=== PATIENT | male | born 1960 ===

== ENCOUNTER 2019-05-02 07:30 | Inpatient (IN) | payer BC ==
--- NOTE | 2019-04-19 13:30 | HP ---
HISTORY AND PHYSICAL: DATE OF SURGERY: 05/02/19 DATE OF OFFICE VISIT: 04/19/19 SURGEON: Cass Jung MD* (dictated by ORESTES Allen). PROCEDURE: Left total hip arthroplasty. CHIEF COMPLAINT: Left hip pain. HISTORY OF PRESENT ILLNESS: Mr. Grijalva is a 58-year-old gentleman with continued complaints of left hip pain. He has failed conservative treatment and elected to proceed with a left total hip arthroplasty. PAST MEDICAL HISTORY: 1. Diabetes. 2. Hypertension. 3. High cholesterol. PAST SURGICAL HISTORY: Hernia repair. CURRENT MEDICATIONS: 1. Januvia 50 mg daily. 2. Lisinopril/hydrochlorothiazide 20/25 mg daily. 3. Rosuvastatin calcium 5 mg today. 4. Trulicity injection subcutaneously once weekly. 5. Meloxicam as needed. 6. Tramadol as needed. ALLERGIES: No known drug allergies. FAMILY HISTORY: Stroke and coronary artery disease. SOCIAL HISTORY: He is a 58-year-old gentleman, lives with his . He does not smoke or use drugs. He uses occasional alcohol. REVIEW OF SYSTEMS: A complete 14-point review of systems was reviewed with the patient. It was positive for diabetes. He denies a history of DVT, PE, hepatitis, HIV or anesthesia problems. PHYSICAL EXAMINATION GENERAL: He is well developed, well nourished, in no acute distress. VITAL SIGNS: He stands 70.5 inches tall, weighs 255 pounds, blood pressure is 120/84, his heart rate is 64. HEENT: Normocephalic, atraumatic. NECK: Supple. No palpable lymph nodes. PULMONARY: Lungs are clear to auscultation bilaterally. CARDIO: Regular rate and rhythm. Strong S1 and S2. ABDOMEN: Soft, nontender, nondistended. NEUROLOGICAL: He is alert and oriented x3. MUSCULOSKELETAL: Left lower extremity: Skin is intact. There are no open wounds or abrasions. He walks with an antalgic type gait favoring his left hip. He has decreased internal and external rotation of the left hip. He has 80 degrees of flexion of the hip. He lacks 15 degrees from neutral and has 0 internal rotation, all reproducing pain. He is able to dorsiflex and plantarflex. He has 2+ dorsalis pedis pulse and intact sensation. ASSESSMENT AND PLAN: Mr. Grijalva is a 58-year-old gentleman with severe end- stage osteoarthritis of the left hip. He has failed conservative treatment and elected to proceed with a left total hip arthroplasty. This surgery is scheduled for 05/02/[address] Jung discussed the risks and benefits of the surgery at today's visit and all of his questions were answered. He will follow up with Dr. Jung 2 weeks after the surgery. ORESTES ALLEN [id number]/CPS #: [id number] MTDD
[~2019-05-02 07:30] MED LIST: Buffered Lidocaine 1% SYRIN* 1 ML/SYRINGE INTRADERM ONE; Lactated Ringers 1000 ML Bag* 1,000 ML IV SCH; Tranexamic Acid 1,000 MG in NS 0.9% 50 ML* (outpatient use) IV SCH
[2019-05-02] MEDS ORDERED: Bupivacaine 0.5% SDV PF* 30ML VIAL ONE (07:32)
[2019-05-02] MEDS ORDERED: Propofol* 10 MG/ML 20 ML BTL ONE ×2 (07:32→12:10)
[2019-05-02] MEDS ORDERED: Lidocaine 2% PF * 5 ML VIAL ONE ×2 (07:32→07:37)
[2019-05-02] MEDS ORDERED: ROPIVACAINE 5 MG/ML 30 ML BTL (0.5%) ONE (07:32)
[2019-05-02] MEDS ORDERED: Propofol* 500 MG/50 ML BTL ONE (07:32)
[2019-05-02] MEDS ORDERED: KETAMINE HCL* 50 MG/ML 10 ML VIAL ONE (07:33)
--- OUTSIDE RECORDS SUMMARY | 2019-05-02 07:33 | XMS REPORT | Continuity of Care Document ---
:1960 External Reference #:[id number] Author Name Mckenzie Copeland Care Team Providers Name Role Phone Isaac Huang MD Primary Care Physician Unavailable Payers Date Identification Numbers Payment Provider Subscriber Policy Number: [id number] [facility] Shaquille Grijalva PayID: [id number] [address] [address] [place] [address] Problems Active Problems Provider Date Localized, primary osteoarthritis of the pelvic Cass Jung M.D. 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 Tablets needed pain. max 6 per day Januvia Take One Tablet By Unknown 50mg Mouth Every Day Tablets Lisinopril-Hydrochl Take One Tablet By Unknown orothiazide Mouth Every Day 20-25mg Tablets Rosuvastatin Take One Tablet By Unknown Calcium Mouth Every Day 5mg Tablets Trulicity Inject Subcutaneously Unknown Once A Week as 1.5mg/0.5ML Directed Solution Pen-Inject Meloxicam as needed Unknown Vital Signs Date Vital Result Comment 04/13/2019 8:46am Height 70.5 inches 5'10.50" Weight 261.00 lb with shoes Heart Rate 70 /min BP Systolic Sitting 118 mmHg Rue lg cuff Lue 110/74 BP Diastolic Sitting 76 mmHg Rue lg cuff Lue 110/74 BP Systolic Standing 110 mmHg Rue lg cuff BP Diastolic Standing 76 mmHg Rue lg cuff Respiratory Rate 16 /min BMI (Body Mass Index) 36.9 kg/m2 03/03/2019 8:28am Height 70.5 inches 5'10.50" Weight 257.00 lb Heart Rate 64 /min BP Systolic 144 mmHg BP Diastolic 86 mmHg Pain Level 8 BMI (Body Mass Index) 36.4 kg/m2 Procedures Date Code Description Status 04/13/2019 49365 EKG Tracing & Interpretation Completed Encounters Type Date Location Provider Dx Diagnosis Office Visit 03/03/2019 [facility] Cass Jung, M25.552 Pain in left hip 8:00a [facility] M16.12 Unilateral primary osteoarthritis, left hip Plan of Treatment Future Appointment(s):04/18/2019 4:40 pm - Ramos Drake M.D. at [facility]04/14/2019 1:30 pm - Traveling ECHO 2 at [facility]04/17/2019 9:30 am - Toy Styles M.D. at [facility]05/02/2019 11:45 am - Cass Jung M.D. at [facility]05/17/2019 8:00 am - Cass Jung M.D. at [facility].04/19/2019 8:00 am - Cass Jung M.D. at [facility]04/13/2019 - Ramos Drake M.D.R94.31 Abnormal electrocardiogram [ECG] [EKG]New Orders:Echocardiogram, Ordered: Lexiscan Nuclear Myoview, Ordered: 04/13/19Follow up:ov before 05/02 for final clearance if possibe-you can use 820, 11 20, 4 20 or 4 40 nspvnH74 Essential ( primary) ojdefztmrajzE52.5 Hyperlipidemia, udhditpytnnB72.9 Obesity, rexiqrbiovpB63.810 Encounter for preprocedural cardiovascular woowxrtsugcR27.49 Family history of ischemic heart disease and other diseases
--- OUTSIDE RECORDS SUMMARY | 2019-05-02 07:33 | XMS REPORT | Continuity of Care Document ---
:1960 External Reference #:[id number] Author Name Marj Unger Care Team Providers Name Role Phone Isaac Huang MD Primary Care Physician Unavailable Payers Date Identification Numbers Payment Provider Subscriber Policy Number: [id number] [facility] Shaquille Grijalva PayID: [id number] [address] [address] [place] [address] Problems Active Problems Provider Date Localized, primary osteoarthritis of the pelvic Cass Jung M.D. 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 Tablets needed pain. max 6 per day Januvia Take One Tablet By Unknown 50mg Tablets Mouth Every Day Lisinopril-Hydrochlo Take One Tablet By Unknown rothiazide Mouth Every Day 20-25mg Tablets Rosuvastatin Calcium Take One Tablet By Unknown Mouth Every Day 5mg Tablets Trulicity Inject Subcutaneously Unknown 1.5mg/0.5ML Once A Week as Solution Pen-Inject Directed Meloxicam 7.5 mg as needed Unknown Advil as needed Unknown 200mg Tablets Acetaminophen ER 1 by mouth twice a Unknown day, as needed 650mg Tablets ER Aleve as needed Unknown 220mg Tablets Medications Administered in Office Medication SIG Qnty Indications Ordering Provider Date Inj, Regadenoson, 0.1 MG Toy Styles M.D. 04/17/2019 Injection Technetium TC 99M Toy Styles M.D. 04/17/2019 Tetrofosmin, Per Unit Dose Up To 40 Millicuries Injection Technetium TC 99M Toy Styles M.D. 04/17/2019 Tetrofosmin, Per Unit Dose Up To 40 Millicuries Injection Vital Signs Date Vital Result Comment 04/19/2019 1:04pm Height 70.5 inches 5'10.50" Weight 257.38 lb with shoes Heart Rate 96 /min BP Systolic Sitting 148 mmHg LA, reg BP Diastolic Sitting 80 mmHg LA, reg BP Systolic Standing 148 mmHg LA< reg BP Diastolic Standing 78 mmHg LA< reg BMI (Body Mass Index) 36.4 kg/m2 Ejection Fraction 60%-65% 04/14/19 echo 04/19/2019 8:06am Height 70.5 inches 5'10.50" Weight 255.00 lb Heart Rate 64 /min BP Systolic 120 mmHg BP Diastolic 82 mmHg Respiratory Rate 16 /min Body Temperature 97.7 F Pain Level 4 BMI (Body Mass Index) 36.1 kg/m2 04/13/2019 8:46am Height 70.5 inches 5'10.50" Weight [...] 8 BMI (Body Mass Index) 36.4 kg/m2 Results Test Date Facility Test Result H/L Range Note Inr/Protime 04/19/2019 [facility] Inr 0.98 N 0.82-1.09 1, [address] [place] [address] [phone] Laboratory test 04/19/2019 [facility] Partial 34.6 seconds N 26.0-36.[address] [place] [address] PTT [phone] Type & Screen 04/19/2019 [facility] Patient Blood O Positive [address] [place] [address] [phone] Antibody Screen NEGATIVE 1 PAIN IN LEFT HIP, UNILATERAL PRIMARY OSTEOARTHRITI 2 Standard intensity warfarin therapeutic range: 2.0-3.0 High intensity warfarin therapeutic range: 2.5-3.5 Procedures Date Code Description Status 04/17/2019 46142 Stress Test Completed 04/14/2019 58475 ECHO Transthoracic, Real-Time 2D With Doppler And Color Completed Flow 04/13/2019 45848 EKG Tracing & Interpretation Completed Encounters Type Date Location Provider Dx Diagnosis Office Visit 03/03/2019 Orthopedic Cass Jung, M25.552 Pain in left hip 8:00a [facility] M16.12 Unilateral primary osteoarthritis, left hip Plan of Treatment Future Appointment(s):05/15/2019 1:45 pm - Cass Jung M.D. at [facility]05/02/2019 9:45 am - Cass Jung M.D. at [facility]04/19/2019 - Ramos Drake M.D.I10 Essential (primary ) lbdxsidzpvzuO07.9 Obesity, akrtfurcosfC77.5 Hyperlipidemia, bmhmutnqhgnP54.810 Encounter for preprocedural cardiovascular yzvuskhdjczB41.49 Family history of ischemic heart disease and other faknioalR87.819 Aortic ectasia, unspecified siteNew Orders:Echocardiogram, Ordered: 04/19/19Follow up: one yr ov
--- OUTSIDE RECORDS SUMMARY | 2019-05-02 07:33 | XMS REPORT | Continuity of Care Document ---
:1960 External Reference #:[id number] Author Name Anushka Connolly Care Team Providers Name Role Phone Isaac Huang MD Primary Care Physician Unavailable Payers Date Identification Numbers Payment Provider Subscriber Policy Number: [id number] [facility] Shaquille Grijalva PayID: [id number] [address] [address] [place] [address] Problems Active Problems Provider Date Localized, primary osteoarthritis of the pelvic Cass Jung M.D. 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 Use Occasionally consumes alcohol Tobacco [...] Vital Signs Date Vital Result Comment 04/19/2019 8:06am Height 70.5 inches 5'10.50" Weight [...] 36.4 kg/m2 Procedures Date Code Description Status 04/17/2019 54964 Stress Test Completed 04/14/2019 55736 ECHO Transthoracic, Real-Time 2D With Doppler And Color Completed Flow 04/13/2019 06036 EKG Tracing & Interpretation Completed Encounters Type Date Location Provider Dx Diagnosis Office Visit 03/03/2019 Orthopedic Cass Jung, M25.552 Pain in left hip 8:00a [facility] M16.12 Unilateral primary osteoarthritis, left hip Plan of Treatment Future Appointment(s):05/15/2019 1:45 pm - Cass Jung M.D. at [facility].05/02/2019 11:45 am - Cass Jung M.D. at [facility].05/17/2019 8:00 am - Cass Jung M.D. at [facility]..04/19/2019 - Cass Jung M.D.M25.552 Pain in left hipFollow up:Follow up: 2 weeks after tnbrvmzW59.12 Unilateral primary osteoarthritis, left hip
--- OUTSIDE RECORDS SUMMARY | 2019-05-02 07:34 | XMS REPORT | Continuity of Care Document ---
:1960 External Reference #:[id number] Author Name ORESTES Celestin Address [address] , [place] [address] Care Team Providers Name Role Phone Isaac Huang MD Primary Care Physician Unavailable Payers Date Identification Numbers Payment Provider Subscriber Policy Number: [id number] [facility] Shaquille Grijalva PayID: [id number] [address] [address] [place] [address] Advance Directives Description No Information Available Problems Active Problems Provider Date Localized, primary osteoarthritis of the pelvic Cass Jung M.D. 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 Use Occasionally consumes alcohol Tobacco Use Start: Unknown Patient has never smoked Smoking Status Reviewed: 03/03/19 Patient has never smoked Exercise Type/Frequency Exercises [...] Week as 1.5mg/0.5ML Directed Solution Pen-Inject Meloxicam Unknown Immunizations Description No Information Available Vital Signs Date Vital Result Comment 03/03/2019 8:28am Height 70.5 inches 5'10.50" Weight 257.00 lb Heart Rate 64 /min BP Systolic 144 mmHg BP Diastolic 86 mmHg Pain Level 8 BMI (Body Mass Index) 36.4 kg/m2 Results Description No Information Available Procedures Description No Information Available Encounters Type Date Location Provider Dx Diagnosis Office Visit 03/03/2019 Orthopedic Cass Jung, M25.552 Pain in left hip 8:00a [facility] M16.12 Unilateral primary osteoarthritis, left hip Plan of Treatment Future Appointment(s):04/13/2019 9:30 am - Ramos Drake M.D. at [facility]05/02/2019 11:30 am - Cass Jung M.D. at [facility].05/17/2019 8:00 am - Cass Jung M.D. at [facility]..04/19/2019 8:00 am - Cass Jung M.D. at [facility]..03/03/2019 - Cass Jung M.D.M25.552 Pain in left hipFollow up:Follow up: 7-10 days before rvlddpfI37.12 Unilateral primary osteoarthritis , left hip
--- OUTSIDE RECORDS SUMMARY | 2019-05-02 07:34 | XMS REPORT | Continuity of Care Document ---
:1960 External Reference #:[id number] Author Name Kavya Scherer Care Team Providers Name Role Phone Isaac Huang MD Primary Care Physician Unavailable Payers Date Identification Numbers Payment Provider Subscriber Policy Number: [id number] [facility] Shaquille Grijalva PayID: [id number] [address] [address] [place] [address] Advance Directives Description No Information Available Problems Active Problems Provider Date Localized, primary osteoarthritis of the pelvic Cass Jung M.D. 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 at [facility].05/17/2019 8:00 am - Cass Jung M.D. at [facility].04/19/2019 8:00 am - Cass Jung M.D. at [facility].03/03/2019 - Cass Jung M.D.M25.552 Pain in left hipFollow up:Follow up: 7-10 days before zfwfvegA38.12 Unilateral primary osteoarthritis , left hip
[2019-05-02] MEDS ORDERED: Dexmedetomidine* 200 MCG/2 ML 2 ML VIAL ONE (07:38)
[2019-05-02] MEDS ORDERED: Midazolam* 1 MG/ML 2 ML VIAL (2 MG) ONE (07:39)
[2019-05-02] MEDS ORDERED: ceFAZolin 2 GM PREMIX in ORs 2 GM/50 ML BAG ONE (07:59)
[2019-05-02] MEDS ORDERED: Buffered Lidocaine 1% SYRIN* 1 ML/SYRINGE INTRADERM ONE (07:59)
[2019-05-02] MEDS ORDERED: EPHEDrine (Pressors)* 50 MG/ML VIAL ONE (10:33)
[2019-05-02] MEDS ORDERED: Phenylephrine 10 MG/ML VIAL* 1 ML VIAL ONE (10:33)
[2019-05-02] MEDS ORDERED: Atropine 1MG/ML INJ* 1 ML VIAL ONE (11:02)
[2019-05-02] MEDS ORDERED: Labetalol IV* 5 MG/ML 20 ML VIAL ONE (11:08)
[2019-05-02] MEDS ORDERED: DiMENhydriNATE IV* 50 MG/ML VIAL IV PUSH PRN (11:48)
[2019-05-02] MEDS ORDERED: Acetaminophen IV 1GM/100ML * 1,000 MG/100 ML VIAL IVPB ONE (11:48)
[2019-05-02] MEDS ORDERED: HYDROmorphone INJ1* 1 MG/ML SYRINGE IV PRN (11:48)
[2019-05-02] MEDS ORDERED: Ketorolac INJ* 30 MG/ML 1 ML VIAL IV PRN (11:48)
[2019-05-02] MEDS ORDERED: Naloxone* 0.4 MG/ML 1 ML VIAL IV PRN (11:48)
[2019-05-02] MEDS ORDERED: oxyCODONE TAB* 5 MG TAB PO PRN ×2 (11:48→13:20)
[2019-05-02] MEDS ORDERED: Morphine INJ* 2 MG/ML 1 ML SYRINGE (TWO MG - NEW SYRINGE VERSION) IV PRN (13:20)
[2019-05-02] MEDS ORDERED: Ondansetron INJ* 2 MG/ML VIAL IV PRN (13:20)
[2019-05-02] MEDS ORDERED: Bisacodyl SUPP* 10 MG SUPP PR PRN (13:20)
[2019-05-02] MEDS ORDERED: oxyCODONE/Acetamin 5/325 MG* TAB PO PRN (13:20)
[2019-05-02] MEDS ORDERED: Cyclobenzaprine TAB* 10 MG PO PRN (13:20)
[2019-05-02] MEDS ORDERED: Polyethylene Glycol 3350* 17 GM PACKET PO PRN (13:20)
[2019-05-02] MEDS ORDERED: diPHENhydraMINE IV* 50 MG/ML 1 ml VIAL (BENADRYL) IV PRN (13:20)
[2019-05-02] MEDS ORDERED: Magnesium Hydroxide LIQ* 30 ML UDC PO PRN (13:20)
[2019-05-02] MEDS ORDERED: Phenylephrine 40 MCG/ML SYRINGE ONE (13:25)
[2019-05-02] MEDS ORDERED: Acetaminophen IV 1GM/100ML * 100 ML ONE (13:33)
[2019-05-02] MEDS ORDERED: Ketorolac INJ* 30 MG/ML 1 ML VIAL ONE (13:33)
[2019-05-02] MEDS: Phenylephrine 40 MCG/ML SYRINGE IV PUSH PRN ×2 (13:41→13:53)
[2019-05-02] MEDS ORDERED: HYDROmorphone INJ1* 1 MG/ML SYRINGE ONE (14:29)
--- NOTE | 2019-05-02 15:04 | PN ---
Progress Note - Progress Note Date of Service: 05/02/19 Note: resting comfortably in recovery with no complaints. dressing c/d/i, able to dorsi flex/plantar flex, 2+ DP pulse and intact sensation
--- NOTE | 2019-05-02 15:18 | OP ---
Operative Report - Blank - Operative Report Date of Operation: 05/02/19 Note: NADIA MCKINLEY 1960 Date Of Surgery: 05/02/19 Cass Jung MD Community Manager: Rivera CARLISLE did help throughout the procedure with preparation of the hip, wound retraction, manipulation of the hip, and wound closure. Anesthesiologist: Kenroy Saldana MD Anesthesia Type: Spinal Preoperative Diagnosis: Left severe degenerative osteoarthritis of the hip Postoperative Diagnosis: As above Procedure Performed: Left Total Hip Arthroplasty Complications: None Specimen: Femoral head and acetabular reamings sent to pathology. Hardware used: This is uncemented Carol total hip arthroplasty hardware for the femur a size left femoral component, for the acetabulum a size 54E trident II tritanium cluster hole shell, a single 15mm screw, for the insert a size 36 E trident x3 insert, and for the femoral head a size 36 + 0 ceramic biolox delta V40 femoral head. Brief history/Indication: NADIA MCKINLEY was known in clinic and had a history of severe left hip pain. He failed conservative treatment with anti- inflammatories, pain pills, intra-articular injections and physical therapy. He elected to undergo left total hip arthroplasty due to continued pain and decreased quality of life. Radiographs showed severe end stage osteoarthritis of the hip with bone on bone contact. Informed consent was obtained from the patient. He understood the risks of surgery included but were not limited to: bleeding, infection, damage to nearby structures, intraoperative fracture, nerve palsy, failure of the hardware, early loosening, stiffness or loss of motion, dislocation, leg length discrepancy, anesthesia complications, stroke, heart attack, blood clot and . He wished to proceed. Intra-Operative findings: Intraoperatively the patient was noted to have severe loss of cartilage of the acetabulum and femoral head. Description of the Procedure: NADIA MCKINLEY was identified in the preanesthesia unit. His left hip was marked as the correct operative side. Informed consent was signed and placed in the chart. The patient was taken to the operating room and placed under anesthesia without complication. A simon catheter was placed. The patient was placed on the peg board with all bony prominences well padded. The left lower extremity was prepped and draped in the usual sterile fashion. Preoperative time -out was made to correctly identify the patient, side and site. Appropriate intraoperative antibiotics were given within one hour of incision. A standard posterior incision was made and carried sharply down to the lateral fascia. A new 10 blade was used to make an incision in the fascia in line with the skin incision. A charnley retractor was placed. The piriformis and conjoined tendons were identified and elevated off the posterolateral femur using electrocautery. These were tagged with number 5 Ethibond. Next electrocautery was used to make a posterolateral capsular flap and this was tagged with number 5 Ethibonds. The hip was carefully dislocated. Lesser trochanter to the center of the femoral head was measured at 65 mm. The oscillating saw was used to make the femoral neck cut. The femoral head was carefully removed. The femur was retracted anteriorly and the acetabular retractors were placed. Long-handled knife was used to sharply remove any remaining labrum from the acetabular rim. The acetabulum was sequentially reamed up to a size 53. A bleeding subchondral bone bed was obtained. A trial cup was placed and had excellent fit and stability. A 54E trident II tritanium cup was placed and had excellent stability with appropriate anteversion and abduction angle. A single 15 mm screw was placed for extra stability. A size 36 E liner was impacted into the acetabular shell. The liner was checked for stability and was stable. Next attention was turned to preparation of the femoral canal. A canal finder was used to enter the proximal femur. The femoral canal was sequentially broached up to a size 6 femoral broach trial. A trial neck and 36 + 0 trial femoral head was chosen. Lesser trochanter to center of the femoral head measurement was satisfactory. The hip was reduced and taken through a range of motion. The hip was stable in all positions with good soft tissue tension and appropriate leg lengths. The hip was dislocated and all trials were removed. The final implant chosen was a 6 accolade II with 127 neck. This stem was impacted into the femoral canal without difficulty. The stem was stable with appropriate anteversion. The femoral head chosen was a 36 + 0 ceramic head. The head was impacted onto the femoral neck without difficulty. The final lesser trochanter to center of the femoral head measurement was satisfactory. The hip was reduced and taken through a range of motion. The hip was stable in all positions with good soft tissue tension and appropriate leg lengths. The hip was copiously irrigated with sterile saline. The previously tagged capsule and tendons were repaired to the posterolateral femur through two trochanteric drill holes. The lateral fascia layer was closed using number 1 vicryls. The rest of the incision was closed in a layered fashion using 0 and 2-0 vicryls. The skin was closed using 3-0 monocryl suture and Dermabond. Sterile adaptic, 4x4s and paper tape was used to cover the incision. The patients anesthesia was reversed without difficulty. He was taken to the PACU in stable condition. Intended weight-bearing will be as tolerated with posterior hip precautions.
[2019-05-02] MEDS: ceFAZolin 1 GM ADVAN(*) 1 GM in NS 0.9% 50 ML* 50 ML IVPB SCH (17:55)
[2019-05-02] MEDS: Lactated Ringers 1000 ML Bag* 1,000 ML IV SCH (18:40)
[2019-05-02] MEDS: Magnesium Hydroxide LIQ* 30 ML UDC PO SCH (21:24)
[2019-05-02] MEDS: Docusate CAP* 100 MG PO SCH (21:24)
[2019-05-03] MEDS: ceFAZolin 1 GM ADVAN(*) 1 GM in NS 0.9% 50 ML* 50 ML IVPB SCH ×2 (02:00→10:05)
[2019-05-03] MEDS: Lactated Ringers 1000 ML Bag* 1,000 ML IV SCH ×2 (02:00→14:15)
[2019-05-03] MEDS: oxyCODONE/Acetamin 5/325 MG* TAB PO PRN ×2 (05:37→12:39)
[2019-05-03 05:47] LABS: Hematocrit 40 % (42-52); Hemoglobin 13.6 g/dL (14.0-18.0); Mean Platelet Volume 9.4 fL (7.4-10.4); Platelet Count 218 10^3/uL (150-450)
[2019-05-03 06:11] LABS: BUN/Creatinine Ratio 18.6 (8-20); Calcium 9.2 mg/dL (8.6-10.3); EGFR African American 110.5 (>60); EGFR Non-African American 91.3 (>60); Potassium 3.8 mmol/L (3.5-5.0)
[2019-05-03] MEDS: Magnesium Hydroxide LIQ* 30 ML UDC PO SCH ×2 (08:40→19:57)
[2019-05-03] MEDS: Docusate CAP* 100 MG PO SCH ×2 (08:44→19:56)
[2019-05-03] MEDS: Vitamin THERAPEUTIC TAB PO SCH (08:44)
[2019-05-03] MEDS: Apixaban* 2.5 MG TAB PO SCH ×2 (08:44→19:56)
--- NOTE | 2019-05-03 10:41 | PN ---
Progress Note - Progress Note Date of Service: 05/03/19 SOAP: Subjective: []Patient seen and examined at bedside. Denies CP, SOB, dizziness though does confirm mild lightheadedness and nausea. Objective: []General: NAD, carrying on appropriate conversation LLE: left hip dressing CDI, thigh is soft, DF/PF intact, DP 2+, sensation intact to light touch distally Calves supple and nontender Assessment: [] POD 1 sp LTH Plan: []WBAT PT/OT eliquis 2.5 mg po BID Encouraged IS Possible DC home later today if feeling well and PT goals met. If so will change dressing prior to DC Vital Signs Temp 98.5 F 05/03/19 07:28 Pulse 78 05/03/19 10:06 Resp 20 05/03/19 08:43 BP 105/65 05/03/19 10:06 Pulse Ox 93 05/03/19 08:00 Intake & Output 05/02/19 05/03/19 05/03/19 18:59 06:59 18:59 Intake Total 2155 1790 1372 Output Total 1300 Balance 2155 490 1372 Weight 252 lb Intake: IV Fluids 2054 990 892 ABX - CEFAZOLIN 55 55 LR 2000 990 837 IVPB 50 ABX - CEFAZOLIN 50 Oral 100 750 480 Output: [place] 1300 Other: # Bowel Movements 0 Laboratory Last Values Hgb 13.6 g/dL (14.0-18.0) L 05/03/19 05:29 Hct 40 % (42-52) L 05/03/19 05:29 Plt Count 218 10^3/uL (150-450) 05/03/19 05:29 MPV 9.4 fL (7.4-10.4) 05/03/19 05:29 Sodium 137 mmol/L (135-145) 05/03/19 05:29 Potassium 3.8 mmol/L (3.5-5.0) 05/03/19 05:29 Chloride 102 mmol/L (101-111) 05/03/19 05:29 Carbon Dioxide 29 mmol/L (22-32) 05/03/19 05:29 Anion Gap 6 mmol/L (2-11) 05/03/19 05:29 BUN 16 mg/dL (6-24) 05/03/19 05:29 Creatinine 0.86 mg/dL (0.67-1.17) 05/03/19 05:29 Est GFR ( Amer) 110.5 (>60) 05/03/19 05:29 Est GFR (Non-Af Amer) 91.3 (>60) 05/03/19 05:29 BUN/Creatinine Ratio 18.6 (8-20) 05/03/19 05:29 Glucose 193 mg/dL (70-100) H 05/03/19 05:29 POC Glucose (mg/dL) 140 mg/dL (70-100) H 05/02/19 13:28 Calcium 9.2 mg/dL (8.6-10.3) 05/03/19 05:29
[2019-05-03] MEDS ORDERED: Scopolamine 1.5 mg* PATCH TRANSDERM SCH (12:00)
[2019-05-03] MEDS ORDERED: PROCHLORPERAZINE INJ 5 MG/ML 2 ML VIAL IV PRN (12:01)
[2019-05-03] MEDS ORDERED: Scopolamine 1.5 mg* PATCH ONE (14:55)
[2019-05-03] MEDS ORDERED: traMADol TAB* 50 MG PO PRN (16:15)
[2019-05-03] MEDS ORDERED: Scopolamine 1.5 mg* PATCH TRANSDERM PRN (18:01)
[2019-05-03] MEDS: Acetaminophen TAB* 325 MG PO PRN (19:56)
[2019-05-04 05:10] LABS: Hematocrit 40 % (42-52); Hemoglobin 13.6 g/dL (14.0-18.0); Mean Platelet Volume 9.6 fL (7.4-10.4); Platelet Count 238 10^3/uL (150-450)
[2019-05-04] MEDS: Acetaminophen TAB* 325 MG PO PRN (07:22)
[2019-05-04] MEDS: Vitamin THERAPEUTIC TAB PO SCH (08:15)
[2019-05-04] MEDS: Apixaban* 2.5 MG TAB PO SCH (08:15)
[2019-05-04] MEDS: Docusate CAP* 100 MG PO SCH (08:16)
[2019-05-04] MEDS: Magnesium Hydroxide LIQ* 30 ML UDC PO SCH (08:16)
--- NOTE | 2019-05-04 09:51 | PN ---
Progress Note - Progress Note Date of Service: 05/04/19 SOAP: Subjective: []Pt seen and examined at bedside. He feels "much better than yesterday". Denies CP, SOB, dizziness. Still mildly nauseous with scop patch on though much improved, he has not tried to eat yet today. No Hx DVT or PE. Objective: []General: NAD, appears comfortable LLE: left hip dressing CDI, dressing changed by Dr Jung this morning, thigh is soft, DF/PF intact, DP 2+, sensation intact to light touch distally Calves supple and nontender without erythema, edema or palpable cords Assessment: [] POD 2 sp LTH Plan: []WBAT PT/OT eliquis 2.5 mg po BID Encouraged continued use of IS Anticipate DC home, mild tachy overnight which has resolved Vital Signs Temp 98.9 F 05/04/19 08:03 Pulse 93 05/04/19 08:03 Resp 16 05/04/19 08:03 BP 148/86 05/04/19 08:03 Pulse Ox 94 05/04/19 08:03 Intake & Output 05/03/19 05/04/19 05/04/19 18:59 06:59 18:59 Intake Total 1372 1652 936 Output Total 625 400 400 Balance 747 1252 536 Intake: IV Fluids 892 1132 936 ABX - CEFAZOLIN 55 LR 837 1132 936 Oral 480 520 Output: Urine 425 400 400 Emesis 200 Other: # Bowel Movements 1 1 Estimated Stool Amount Small Medium Laboratory Last Values Hgb 13.6 g/dL (14.0-18.0) L 05/04/19 04:46 Hct 40 % (42-52) L 05/04/19 04:46 Plt Count 238 10^3/uL (150-450) 05/04/19 04:46 MPV 9.6 fL (7.4-10.4) 05/04/19 04:46 Sodium 137 mmol/L (135-145) 05/03/19 05:29 Potassium 3.8 mmol/L (3.5-5.0) 05/03/19 05:29 Chloride 102 mmol/L (101-111) 05/03/19 05:29 Carbon Dioxide 29 mmol/L (22-32) 05/03/19 05:29 Anion Gap 6 mmol/L (2-11) 05/03/19 05:29 BUN 16 mg/dL (6-24) 05/03/19 05:29 Creatinine 0.86 mg/dL (0.67-1.17) 05/03/19 05:29 Est GFR ( Amer) 110.5 (>60) 05/03/19 05:29 Est GFR (Non-Af Amer) 91.3 (>60) 05/03/19 05:29 BUN/Creatinine Ratio 18.6 (8-20) 05/03/19 05:29 Glucose 193 mg/dL (70-100) H 05/03/19 05:29 POC Glucose (mg/dL) 140 mg/dL (70-100) H 05/02/19 13:28 Calcium 9.2 mg/dL (8.6-10.3) 05/03/19 05:29
--- NOTE | 2019-05-04 10:51 | DS ---
Orthopedic Discharge Summary - Discharge Summary Date of Admission:05/02/19 Date of Discharge: 05/04/19 Date of Surgery: 05/02/19 Attending Orthopedic Provider: Dr Jung Pre-operative Diagnosis: left hip osteoarthritis Operative Procedure: left total hip arthroplasty Disposition of Patient: home Condition of Patient: stable History: NADIA MCKINLEY is a 58 year old M with years of increasingly severe left hip pain. Patient has failed conservative management and has elected to undergo a left total hip replacement Hospital Course: NADIA was admitted to [facility] on 05/02/19. Patient underwent a left total hip replacement without complication followed by a brief recovery in PACU and transfer to the Short Stay Surgical Unit in stable condition. Our physical therapy service also participated in this patients care. Post-op day 1: patient was alert and in no acute distress. Dressing was clean, dry and intact. Operative extremity dorsiflexion and plantarflexion intact, sensation intact to light touch distally, DP2+. He was nauseous, compazine and scopolamine patch reduced symptoms. Post-op day two: dressing was changed, incision was clean, dry and intact. Patient was deemed to be stable for discharge. Physical therapy goals were met. Home Medications Medication Instructions Recorded Confirmed Type Acetaminophen Arthritis 800 mg PO BID PRN 04/19/19 05/02/19 History Dulaglutide (NF) [Trulicity (NF)] 1.5 mg SUBCUT 1530 04/19/19 05/02/19 History Lisinopril/HCTZ (NF) 1 tab PO 209904/19/19 05/02/19 History [Zestoretic (NF)] Rosuvastatin Calcium 5 mg PO 209904/19/19 05/02/19 History Sitagliptin (NF) [Januvia (NF)] 50 mg PO 209904/19/19 05/02/19 History Acetaminophen TAB* [Tylenol TAB*] 650 mg PO Q8H PRN tab 05/04/19 Rx Apixaban* [Eliquis*] 2.5 mg PO BID #60 tab 05/04/19 Rx Docusate CAP* [Colace Cap*] 100 mg PO BID PRN #90 cap 05/04/19 Rx Scopolamine 1.5 mg* PATCH* 1 patch TRANSDERM Q72H PRN patch 05/04/19 Rx [Transderm-Scop 1.5 mg Patch*] oxyCODONE/Acetamin 5/325 MG* 1 tab PO Q4H PRN tab MDD 05/04/19 Rx [Percocet 5/325 TAB*] oxyCODONE/Acetamin 5/325 MG* 2 tab PO Q4H PRN #70 tab MDD 05/04/19 Rx [Percocet 5/325 TAB*] Discharge Instructions following Orthopedic Surgery: Activity: * Weight Bearing as tolerated * Continue physical therapy and occupational therapy exercises as shown * Attend outpatient physical therapy Hip replacements: Continue Hip Precautions- do not cross legs or bend greater than 90 degrees/squat Wound care: * OK to shower on post-op day 3, no bathing, swimming, or submerging wound. * Use gentle soap, pat dry. Cover with gauze and tape. Call Orthopedic office for: * Increased drainage * Redness * Increased pain * Fever Go to ER with shortness of breath or chest pain. Diet: * Regular diet * Increase fluids and fiber to prevent constipation. * Continue to use stool softeners, call office if no bowel motion within 48 hours. Medications See Home Medication List in your packet for medications that you should take after discharge. DVT Prophylaxis: Eliquis Dosin.5 mg, 1 tab every 12 hours x 30 days. This medication increases bleeding tendency Pain Control: Percocet Dosin/325 mg 1-2 tabs by mouth every 4-6 hours as needed for pain. Maximum of 10 tabs per day. Hold for sedation Please note that Percocet contains Tylenol (acetaminophen). Maximum daily dose of Tylenol is 4000 mg from all sources. Antibiotics are required prior to any dental work. FOLLOW UP: Follow up with [Erich] Within 10-14 days, call for appointment Please call our office with any questions or concerns ([phone]) RX to [facility]
[2019-05-04 11:50] VITALS: BP 134/79
[2019-05-04] MEDS ORDERED: Acetaminophen TAB* 325 MG PO PRN (13:00)
[2019-05-06] MEDS ORDERED: Scopolamine PATCH Remove* 1 NOTE MISC PATCH OFF SCH (18:00)
== END 2019-05-04 13:45 | disposition home or self-care (01) | DRG 301 ==
LOC: AA 07:30 → SSU 13:20
PROVIDERS: ADMIT Orthopaedic Surgery Adult Reconstructive Orthopaedic Surgery; ATTEND Orthopaedic Surgery Adult Reconstructive Orthopaedic Surgery
PROC: 0SRB04A Replacement of Left Hip Joint with Ceramic on Polyethylene Synthetic Substitute, Uncemented, Open Approach (ICD-10-PCS; principal; 2019-05-02 10:30)
DX: M16.12 Unilateral primary osteoarthritis, left hip (principal); E11.9 Type 2 diabetes mellitus without complications; E78.00 Pure hypercholesterolemia, unspecified; E66.9 Obesity, unspecified; E78.2 Mixed hyperlipidemia; I45.10 Unspecified right bundle-branch block; R11.0 Nausea; Z82.3 Family history of stroke; Z82.49 Family history of ischemic heart disease and other diseases of the circulatory system; Z72.89 Other problems related to lifestyle; Z68.36 Body mass index [BMI] 36.0-36.9, adult
CPT/HCPCS: 36415; 80048; 85014; 85018; 85049; A9270-GY; C1713; C1776; J0461; J0690; J0780; J1170; J1885; J2250; J2405; J2704; J2795; J3490

== ENCOUNTER 2019-05-06 06:16 | Inpatient (IN) | payer BC ==
[2019-05-06] MEDS ORDERED: Ondansetron INJ* 2 MG/ML VIAL IV ONE (06:48)
[2019-05-06] MEDS ORDERED: NS 0.9% 1000 ML** 1,000 ML IV ONE (06:48)
--- NOTE | 2019-05-06 06:56 | ED ---
Abdominal Pain/Male - HPI Summary HPI Summary: Pt. is a 58 y.o male who presents to the ER for abd. distention and vomiting x 3 days. Pt. had a left total hip by Dr. Jung 05/02/19. Pt. states since 05/03 he has been having nausea and vomiting and has not been able to take any oral intake since. Pt. states he has multiple BM and is passing gas. He denies fever , CP, SOB, leg swelling, hip pain. Past hx of DM. Pt. currently on Eliquis post op. Pt. states he is not taking narcotic pain medication. Sx hx of hernia repair at 5y.o. Sxs are moderate in severity. No current modifying factors. - History of Current Complaint Chief Complaint: EDNauseaVomitDiarrh Stated Complaint: HIP REPLACEMENT LAST WEDNESDAY NOW CANT EAT PER PT Time Seen by Provider: 05/06/19 06:33 Hx Obtained From: Patient Pain Intensity: 3 - Allergies/Home Medications Allergies/Adverse Reactions: Allergies Allergy/AdvReac Type Severity Reaction Status Date / Time No Known Allergies Allergy Verified 05/06/19 06:27 PMH/Surg Hx/FS Hx/Imm Hx Previously Healthy: Yes Endocrine/Hematology History: Reports: Hx Diabetes Cardiovascular History: Reports: Hx Hypertension Musculoskeletal History: Reports: Hx Arthritis Denies: Hx Rheumatoid Arthritis, Hx Osteoporosis Sensory History: Reports: Hx Contacts or Glasses Denies: Hx Hearing Aid Opthamlomology History: Reports: Hx Contacts or Glasses - Cancer History Hx Chemotherapy: No - Surgical History Surgery Procedure, Year, and Place: hernia repair at 5 years old Hx Anesthesia Reactions: No Infectious Disease History: No Infectious Disease History: Denies: Traveled Outside the [place] in Last 30 Days - Family History Known Family History: Positive: Non-Contributory - Social History Occupation: Employed Full-time Lives: With Family Alcohol Use: Occasionally Substance Use Type: Reports: None Smoking Status (MU): Never Smoked Tobacco Review of Systems Constitutional: Negative Negative: Fever, Chills Cardiovascular: Negative Negative: Palpitations, Chest Pain Respiratory: Negative Negative: Shortness Of Breath, Cough Positive: Vomiting, Nausea, Other - abd. distention. Genitourinary: Negative Musculoskeletal: Negative Positive: Other - incision left leg Neurological: Negative All Other Systems Reviewed And Are Negative: Yes Physical Exam Triage Information Reviewed: Yes Vital Signs On Initial Exam: Initial Vitals Temp Pulse Resp BP Pulse Ox 98.1 F 110 16 112/78 96 05/06/19 06:20 05/06/19 06:20 05/06/19 06:20 05/06/19 06:20 05/06/19 06:20 Vital Signs Reviewed: Yes Appearance: Positive: Well-Appearing - Pt. lying in bed in NAD. present. Skin: Positive: Warm, Dry Head/Face: Positive: Normal Head/Face Inspection Eyes: Positive: Normal, EOMI, HALLIE Neck: Positive: Supple Respiratory/Lung Sounds: Positive: Clear to Auscultation, Breath Sounds Present. Negative: Rales, Rhonchi, Wheezes Cardiovascular: Positive: Normal, RRR Abdomen Description: Positive: Other: - Abd. is distended with mild diffuse tenderness. Hypoactive bowel sounds. Musculoskeletal: Positive: Normal, Strength/ROM Intact, Other - No calf edema or pain. Stapled incision to left upper leg without erythema, edema, or drainage. Neurological: Positive: Normal, CN Intact II-III Psychiatric: Positive: Affect/Mood Appropriate Diagnostics - Vital Signs Vital Signs Temp Pulse Resp BP Pulse Ox 05/06/19 06:20 98.1 F 110 16 112/78 96 - Laboratory Result Diagrams: 05/06/19 07:11 05/06/19 07:11 Lab Statement: Any lab studies that have been ordered have been reviewed, and results considered in the medical decision making process. Abdominal Pain Male Course/Dx - Course Course Of Treatment: Pt. presenting with abd. distention and vomiting 4 days post op total left hip. He is afebrile. Mildly tachycardic. Pt. notes he has not been able to eat or drink in 4 days. IV fluids and zofran started. ECG done at 727 shows a sinus rhythm of 90bpm, left axis deviation, no STEMI. Labs shows leukocytosis of 14. CMP unremarkable other than mildly low Na. Abd. xr per readiology: IMPRESSION: FINDINGS MOST CONSISTENT WITH A PARTIAL SMALL BOWEL OBSTRUCTION. 0740: Case discussed with Dr. Bedoya, surgery, who recommends CT scan with PO contrast for further evaluation. 0920: Pt. vomiting contrast. Will do with just IV contrast. IMPRESSION: 1. THERE IS A MODERATE GRADE PARTIAL SMALL BOWEL OBSTRUCTION APPROXIMATELY AT THE LEVEL OF. THE JUNCTION OF THE MID AND DISTAL SMALL BOWEL WITH A TRANSITION POINT IN THE RIGHT LOWER. QUADRANT. 2. SMALL AMOUNT OF AIR WITHIN THE URINARY BLADDER. RECOMMEND CLINICAL CORRELATION. 3. HEPATIC STEATOSIS. 4. STATUS POST TOTAL LEFT HIP REPLACEMENT SURGERY. Dr. Bedoya reviewed CT. He would like NG tube and will see pt. in the ED. Case discussed with Dr. Benedict and she accepts pt. to her service. NG tube will be placed by nurse. Large amount of greenish fluid out from NG tube. Pt. starting to feel better. Pending admission and sx consult. - Diagnoses Differential Diagnosis/HQI/PQRI: Abdominal Aortic Aneurysm, ACS, AMI, Bowel Obstruction, Constipation, Diverticulitis Provider Diagnoses: Partial small bowel obstruction Discharge - Sign-Out/Discharge Documenting (check all that apply): Patient Departure Patient Received Moderate/Deep Sedation with Procedure: No - Discharge Plan Condition: Stable Disposition: ADMITTED TO [facility] Referrals: Isaac Huang MD [Primary Care Provider] - - Billing Disposition and Condition Condition: STABLE Disposition: Admitted to [facility]
[2019-05-06 07:19] LABS: Hematocrit 43 % (42-52); Hemoglobin 14.4 g/dL (14.0-18.0); Mean Corpuscular HGB Conc 34 g/dL (31-36); Mean Corpuscular Hemoglobin 30 pg (27-31); Mean Corpuscular Volume 89 fL (80-94); Mean Platelet Volume 8.8 fL (7.4-10.4); Platelet Count 323 10^3/uL (150-450); Red Blood Count 4.76 10^6 /uL (4.18-5.48); Red Cell Distribution Width 14 % (10-15); White Blood Count 14.1 10^3/uL (3.5-10.8)
[2019-05-06 07:35] LABS: Albumin 3.8 g/dL (3.2-5.2); Albumin/Globulin Ratio 1.2 (1-3); BUN/Creatinine Ratio 20.2 (8-20); Calcium 9.8 mg/dL (8.6-10.3); EGFR African American 99.7 (>60); EGFR Non-African American 82.4 (>60); Globulin 3.1 g/dL (2-4); Potassium 3.5 mmol/L (3.5-5.0); Total Protein 6.9 g/dL (6.4-8.9)
[2019-05-06 07:37] LABS: Troponin I 0.01 ng/mL (<0.04)
[2019-05-06 07:45] LABS: ABS Eosinophils 0.1 10^3/ul (0-0.6); ABS Lymphocytes 1.2 10^3/ul (1.0-4.8); ABS Monocytes 1.6 10^3/ul (0-0.8); ABS Neutrophils 11.1 10^3/ul (1.5-7.7); Eosinophil % 0.4 %; Lymphocyte % 8.7 %; Nucleated Red Blood Cells % 0.1
[2019-05-06] MEDS ORDERED: PROCHLORPERAZINE INJ 5 MG/ML 2 ML VIAL IV ONE (09:19)
[2019-05-06] MEDS ORDERED: Iodixanol* (CONTRAST) 320 MG/ML 100 ML SDV IV ONE (09:55)
[2019-05-06] MEDS ORDERED: Ondansetron INJ* 2 MG/ML VIAL IV PRN (12:15)
[2019-05-06] MEDS ORDERED: Scopolamine 1.5 mg* PATCH TRANSDERM PRN (12:18)
[2019-05-06] MEDS ORDERED: Dextrose 50% Syringe 50 ML* 25 GM/50 ML SYRINGE IV PUSH PRN (12:23)
--- NOTE | 2019-05-06 12:57 | CONS ---
CC: Primary care doctor; Dr. Cass Jung * SURGICAL CONSULTATION REPORT: DATE OF CONSULT: The patient seen in the emergency room on 05/06/19. HISTORY OF PRESENT ILLNESS: Mr. Grijalva is a 58-year-old morbidly obese gentleman, who is postop day 4 from a left total hip arthroplasty, who was discharged home on postoperative day 2 on Eliquis and Percocet and his regular medications with weightbearing status as tolerated, who had decreased appetite along with nausea, vomiting, and then abdominal pain causing a visit to the emergency room today. The patient states that he has not eaten or drunk anything since going home. Feeling that he is unable to keep anything down, he has been belching and he has been obstipated and constipated. Workup in the emergency room including labs, x-ray, and CT scan was consistent with bowel obstruction. An NG tube was placed by the nursing staff and the patient has over 500 cc of brownish fluid out. At this time, the patient states that he feels much better when compared to arrival. He has no appetite and remains obstipated. The patient describes having a fever postoperative day 2. No fever since. He is not short of breath. PAST MEDICAL HISTORY: Diabetes, hypertension, obesity, and hypercholesterolemia. PAST SURGICAL HISTORY: Hernia repair at 5 years old. It is unclear if this is at the umbilicus or in the groin. MEDICATIONS: Med list reviewed. ALLERGIES: No known drug allergies. SOCIAL HISTORY: He does not smoke. He lives with his . He has been minimally ambulatory since surgery. Surgery is for arthritis. He works in the [employer]. The patient is a nonsmoker. Denies IV drug abuse. REVIEW OF SYSTEMS: No shortness of breath, no chest pain. Reflux at times. Abdominal pain at this point as described. No dysuria. Urine has been dark in color. No history of diverticulitis. No hospitalizations for obstruction in the past. PHYSICAL EXAM: The patient is afebrile, heart rate 100, MAP is 100, O2 sat 93% on room air. He is alert and oriented x3. He has an NG tube in place. He is comfortable on the stretcher. Abdomen is soft, obese, mild distention, tender without rebound mostly in the right lower quadrant. No hernias are noted. I could not appreciate any surgical scars. Small umbilical defect, but without contents. Rectal exam not performed. Extremities with mild edema bilaterally. It is nonpitting and gauze over surgery site at the left hip, which shows nonblanching erythema posteriorly. It is nontender. DIAGNOSTIC STUDIES/LAB DATA: Labs reviewed and show elevated white blood cell count of 14, H and H up to from just 2 days ago. BUN and creatinine ratio 20 with sodium of 132. Normal LFTs. CT scan shows collapsed colon. Distal small-bowel collapsed as well and mildly dilated small-bowel with a dilated stomach. This is consistent with partial small- bowel obstruction. No free fluid. IMPRESSION AND PLAN: Small-bowel obstruction versus ileus. The patient is postoperative day 4 from surgery, has been on intermittent narcotics. The patient is improving just with simple measures of NG tube at this point. My recommendation is admission, IV fluids, n.p.o. status, NG tube, glucose control with fingersticks and insulin. Blood pressure control and observation with serial exams. We will continue to follow closely. The patient may require operative intervention before discharge, but I believe this is unlikely. Again , we will follow closely along. [id number]/[facility] #: [id number] [place]
[2019-05-06] MEDS: Enoxaparin(*) 40 MG/0.4 ML SYR SUBCUT SCH (15:00)
[2019-05-06] MEDS: Lactated Ringers 1000 ML Bag* 1,000 ML IV SCH ×2 (15:01→22:05)
--- NOTE | 2019-05-06 15:34 | HP ---
Amended report to enter cosigning physician. CC: Dr. Huang; Dr. Bedoya* HISTORY AND PHYSICAL: DATE OF ADMISSION: 05/06/19 PRIMARY CARE PROVIDER: Dr. Huang. OTHER PROVIDER: Dr. Bedoya. ATTENDING PHYSICIAN: Dr. Benedict* (dictated by Howard Bose, FEI) CHIEF COMPLAINT: 1. Abdominal pressure. 2. Nausea and vomiting. HISTORY OF PRESENT ILLNESS: Mr. Grijalva is a 58-year-old male with a past medical history significant for diabetes, hypertension, hypercholesterol; who presented to the emergency department today with complaints of abdominal distention and vomiting x3 days. While in the emergency department, the patient had a CTA of the abdomen which revealed a small bowel obstruction. While in the emergency department, Dr. Bedoya was consulted and an NG tube was placed. Given the patient's diagnosis, the hospitalist service was asked to evaluate for admission. PAST MEDICAL HISTORY: 1. Diabetes. 2. Hypertension. 3. High cholesterol. PAST SURGICAL HISTORY: 1. Hernia repair. 2. Left hip replacement 05/02/19. HOME MEDICATIONS: 1. Scopolamine 1.5 mg patch q.72 hours p.r.n. 2. Trulicity 1.5 mg subcutaneously weekly. 3. Colace 100 mg p.o. b.i.d. p.r.n. 4. Eliquis 2.5 mg p.o. b.i.d. 5. Januvia 50 mg p.o. 2100. 6. Rosuvastatin 5 mg p.o. 2100. 7. Lisinopril/HCTZ 20/25 1 p.o. 2100. 8. Tylenol 650 mg p.o. q.8 hours p.r.n. FAMILY HISTORY: The patient reports mom and dad are both living. The patient reports mom has history of strokes. Dad has history of MIs. The patient reports he had a sister who passed in her 20s due to pneumonia. The patient reports all other siblings are healthy except one has Crohn's disease. SOCIAL HISTORY: The patient reports he drinks 1 to 2 drinks per week. The patient denies smoking. The patient denies drug use. The patient lives at home with his . The patient currently uses a walker for ambulation give his recent total left hip replacement. REVIEW OF SYSTEMS: The patient currently reports abdominal pain as a "1"/10. He reports it was previously a "7"/10. He reports after NG tube, his abdominal pain/pressure has greatly decreased. The patient reports left hip pain is "hardly noticeable." He rates hip pain at "1"/10. The patient's last BM was Wednesday. The patient is having no flatus. The patient denies fevers, chest pain , edema, cough, shortness of breath, diarrhea, dysuria, focal weakness, visual complaints, dysphagia, rashes, or lesions. A 14-point review of systems was completed and all were negative. PHYSICAL EXAMINATION GENERAL: Mr. Grijalva is a 58-year-old make who is lying in bed. He appears to be in no acute distress. Appears stated age. VITAL SIGNS: Temp 98.1, HR 109, RR 16, O2 saturation 93% on room air, BP 117/ 94. HEENT: EOMs intact. PERRLA. Oral mucosa is moist without lesion. Posterior oropharynx is clear. The patient has NG tube draining green fluid. NECK: Full range of motion. No lymphadenopathy. RESPIRATORY: Symmetrical chest expansion. No accessory muscle use. Lungs are clear to auscultation. No rhonchi, wheezes, or rales. CARDIAC: S1, S2 present. Regular rate and rhythm. No murmurs, rubs, or gallops. ABDOMEN: Abdomen is slightly distended. Soft. Bowel sounds are hypoactive. Abdomen is currently nontender. EXTREMITIES: Skin is warm and smooth bilaterally. No edema. No clubbing or cyanosis. Pedal pulses 2+ bilaterally. MUSCULOSKELETAL: The patient has 1/10 pain to left hip. Dressing to the left hip is clean, dry, and intact. No pain to palpation. NEUROLOGIC: Awake, alert, and oriented x4. Motor strength is 5/5 in the upper and lower extremities. SKIN: Grossly intact without lesions. DIAGNOSTIC STUDIES/LAB DATA: WBC 14.1, hemoglobin 14.4, hematocrit 43, platelets 323. Sodium 132, potassium 3.5, chloride 91, carbon dioxide 31, BUN 19, creatinine 0.94, glucose 176. Abdominal x-ray: Impression: Findings also consistent with a partial small bowel obstruction. EKG: Impression: Sinus rhythm. Abdominal/pelvis CT: Impression: There is moderate grade partial small bowel obstruction approximately at the level of the junction of the mid and distal small bowel with a transition point in the right lower quadrant. Small amount of air within the urinary bladder. Recommend clinical correlation. Hepatic steatosis. Status post left hip replacement. ASSESSMENT AND PLAN: Mr. Grijalva is a 58-year-old male with a past medical history significant for diabetes, hypertension, high cholesterol, who presented to the emergency department today with abdominal distention and nausea and was found to have small bowel obstruction. The patient will be admitted inpatient on short stay surgical. 1. Small bowel obstruction: As mentioned above, General Surgery has been consulted and an NG tube was placed while in the emergency room. The patient has put out approximately 1000 mL of NG tube drainage. The patient will remain NPO. NG tube will remain in place. The patient will be provided with IV fluid. General Surgery will continue to consult. 2. Left hip replacement: The patient is status post left hip replacement on 05/02/19. The patient reports that his pain has been hardly noticeable and he has been using only Tylenol for pain management. He reports his last dose of any narcotic was Wednesday. He reports his last dose of tramadol was on . The patient currently rates pain at 1/10. We will continue to monitor the patient for pain and provide p.r.n. pain medication as needed. We will continue to ambulate the patient. It should be noted the patient is on Eliquis 2.5 mg p.o. b.i.d. for DVT prophylaxis status post left hip replacement. Given that the patient is NPO, I will hold the patient's Eliquis and place him on Lovenox [address] Jung has been made aware of this patient, but no official consult as the patient as he is here for an SBO. 3. Diabetes: The patient will remain NPO. We will hold the patient's home medications. We will place the patient on a fingerstick q.[address] the patient on a sliding scale q.6 hours. 4. Hypertension: The patient has history of hypertension. Given he is NPO, I am going to hold his lisinopril/HCTZ. He is currently normotensive. We will add p.r.n. blood pressure medications if needed. 5. High cholesterol: The patient is on a statin at home. Given the patient is NPO, we will hold his statin while he is inpatient. I would recommend resuming it at discharge. 6. FEN: The patient will be NPO. The patient will be provided with LR at 150 mL/hour. We will watch patient's labs carefully and we will adjust fluid if needed. We will consider normal saline or D5 half normal saline with 20 of K, depending on the patient's labs. 7. Leucocytosis: As mentioned above, the patient has a mild leucocytosis at 14.1 while here in the emergency department. He is afebrile. I suspect this is secondary to his small bowel obstruction and inflammation. We will monitor his white count closely and add antibiotic if needed. We will also monitor vital signs closely. 8. Code status: The patient is a full code. 9. Surrogate decision maker: The patient's surrogate decision maker will be his , Darcie, [phone]. 10. DVT prophylaxis: As mentioned above, the patient was on Eliquis given his recent surgery. I am going to hold his Eliquis given he is NPO and place him on Lovenox 40 mg once a day. It should be mentioned that the patient's last dose of Eliquis was 05/05/19 in the event that he needs to go to surgery. TIME SPENT: Approximately 65 minutes was spent on this admission; greater than half the time was spent with the patient and caregiver obtaining my history, performing physical exam, and reviewing my plan of care. This case has been reviewed with my attending, Dr. Benedict, who is in agreement with my plan of care. Reviewed by HOWARD BOSE NP 05/06/19 @ 1923 [id number]/[facility] #: [id number] ORTEGA
[2019-05-06] MEDS: Insulin LISPRO* 1 UNITS UNIT SUBCUT SCH ×2 (17:44→23:38)
[2019-05-06] MEDS: Ketorolac INJ* 30 MG/ML 1 ML VIAL IV PUSH PRN (18:40)
[2019-05-07 05:16] LABS: ABS Eosinophils 0.1 10^3/ul (0-0.6); ABS Lymphocytes 1.1 10^3/ul (1.0-4.8); ABS Monocytes 1.2 10^3/ul (0-0.8); ABS Neutrophils 6.7 10^3/ul (1.5-7.7); Eosinophil % 0.9 %; Hematocrit 39 % (42-52); Hemoglobin 13.3 g/dL (14.0-18.0); Lymphocyte % 11.9 %; Mean Corpuscular HGB Conc 35 g/dL (31-36); Mean Corpuscular Hemoglobin 31 pg (27-31); Mean Corpuscular Volume 89 fL (80-94); Platelet Count 321 10^3/uL (150-450); Red Blood Count 4.33 10^6 /uL (4.18-5.48); Red Cell Distribution Width 14 % (10-15); White Blood Count 9.1 10^3/uL (3.5-10.8)
[2019-05-07 05:33] LABS: BUN/Creatinine Ratio 25.6 (8-20); Calcium 9.1 mg/dL (8.6-10.3); EGFR African American 110.5 (>60); EGFR Non-African American 91.3 (>60); Potassium 3.1 mmol/L (3.5-5.0)
[2019-05-07] MEDS: Insulin LISPRO* 1 UNITS UNIT SUBCUT SCH ×4 (05:41→23:42)
[2019-05-07] MEDS: Lactated Ringers 1000 ML Bag* 1,000 ML IV SCH (05:44)
--- NOTE | 2019-05-07 08:06 | PN ---
Subjective Date of Service: 05/07/19 Interval History: NG tube in place, draining. Patient reports that the abdomen fullness has improved slightly but continues to be an issue. Nausea has resolved. Objective Active Medications: Dextrose (D50w Syringe 50 Ml*) 12.5 gm IV PUSH .FOR FS < 60 - SS PRN PRN Reason: FS < 60 Enoxaparin Sodium (Lovenox(*)) 40 mg SUBCUT Q24H [facility] Last Admin: 05/06/19 15:00 Dose: 40 mg Potassium Chloride 40 meq/ (Lactated Ringer's) 1,020 mls @ 100 mls/hr IVPB Q10H [facility] Insulin Human Lispro (Humalog*) 0 units SUBCUT Q6HR [facility]; Protocol Last Admin: 05/07/19 05:41 Dose: 2 units Ketorolac Tromethamine (Toradol Inj*) 30 mg IV PUSH Q6H PRN PRN Reason: PAIN Last Admin: 05/06/19 18:40 Dose: 30 mg Ondansetron HCl (Zofran Inj*) 4 mg IV Q4H PRN PRN Reason: NAUSEA/VOMITING Scopolamine (Transderm-Scop 1.5 Mg Patch*) 1 patch TRANSDERM Q72H PRN PRN Reason: NAUSEA Vital Signs - 8 hr 05/07/19 03:46 Temperature 99.5 F Pulse Rate 97 Respiratory 16 Rate Blood Pressure 118/73 (mmHg) O2 Sat by Pulse 93 Oximetry Oxygen Devices in Use Now: None Appearance: Lying in bed, not in distress. NG tube in place, draining dark color liquid. Respiratory: Clear to Auscultation Cardiovascular: NL Sounds; No Murmurs; No JVD, RRR, - - trace lower extremity edema. Abdominal: - - hypoactive bowel sounds. Moderate distention with typmanic upon percussion. NG tube is draining. mildly tender. Skin: No Rash or Ulcers Neurological: Alert and Oriented x 3 Result Diagrams: 05/07/19 04:55 05/07/19 04:55 Assess/Plan/Problems-Billing Assessment: 58 year old Male with history of DM, HTN, with recent Left hip replacement here with abdominal distention, pain and nausea, found to have partial SBO. - Patient Problems (1) Partial small bowel obstruction Current Visit: Yes Status: Acute Code(s): K56.600 - PARTIAL INTESTINAL OBSTRUCTION, UNSPECIFIED TO CAUSE SNOMED Code(s): 686178068 Comment: NG tube in place. surgery input: Dr. Bedoya, appreciated. NPO, IVF (2) History of diabetes mellitus Current Visit: Yes Status: Acute Code(s): Z86.39 - PERSONAL HISTORY OF ENDO , NUTRITIONAL AND METABOLIC DISEASE SNOMED Code(s): 480062477 Comment: hold home medication while NPO Insulin sliding scale (3) History of hypertension Current Visit: Yes Status: Acute Code(s): Z86.79 - PERSONAL HISTORY OF OTHER DISEASES OF THE CIRCULATORY SYSTEM SNOMED Code(s): 440884568 Comment: BP controlled, holding home meds while NPO (4) DVT prophylaxis Current Visit: Yes Status: Acute Code(s): Z29.9 - ENCOUNTER FOR PROPHYLACTIC MEASURES, UNSPECIFIED SNOMED Code(s): 539010684 Comment: Lovenox subQ 40mg (5) Hypokalemia Current Visit: Yes Status: Acute Code(s): E87.6 - HYPOKALEMIA SNOMED Code( s): 75225995 Comment: KCL added to LR
[2019-05-07] MEDS: Potassium Chloride IV* 40 MEQ in Lactated Ringers 1000 ML Bag* 1,000 ML IVPB SCH ×2 (08:53→18:54)
--- NOTE | 2019-05-07 10:06 | PN ---
Progress Note - Progress Note Date of Service: 05/07/19 SOAP: Subjective: Pt. is alert, reports pain in abdomen with no BM. Denies pain in the hip. Objective: Vital Signs: Temp Pulse Resp BP Pulse Ox 99.2 F 99 16 116/69 91 05/07/19 07:42 05/07/19 07:42 05/07/19 09:26 05/07/19 07:42 05/07/19 07:42 Laboratory Results - last 24 hr 05/06/19 05/06/19 05/06/19 16:43 17:38 23:32 WBC RBC Hgb Hct MCV MCH MCHC RDW Plt Count MPV Neut % (Auto) Lymph % (Auto) [place] % (Auto) Eos % (Auto) Baso % (Auto) Absolute Neuts (auto) Absolute Lymphs (auto) Absolute Monos (auto) Absolute Eos (auto) Absolute Basos (auto) Absolute Nucleated RBC Nucleated RBC % Sodium Potassium Chloride Carbon Dioxide Anion Gap BUN Creatinine Est GFR ( Amer) Est GFR (Non-Af Amer) BUN/Creatinine Ratio Glucose POC Glucose (mg/dL) 149 H 129 H Lactic Acid 0.9 Calcium 05/07/19 05/07/19 04:55 04:55 WBC 9.1 RBC 4.33 Hgb 13.3 L Hct 39 L MCV 89 MCH 31 MCHC 35 RDW 14 Plt Count 321 MPV 8.0 Neut % (Auto) 74.0 Lymph % (Auto) 11.9 [place] % (Auto) 13.0 Eos % (Auto) 0.9 Baso % (Auto) 0.2 Absolute Neuts (auto) 6.7 Absolute Lymphs (auto) 1.1 Absolute Monos (auto) 1.2 H Absolute Eos (auto) 0.1 Absolute Basos (auto) 0.0 Absolute Nucleated RBC 0.0 Nucleated RBC % 0.0 Sodium 135 Potassium 3.1 L Chloride 93 L Carbon Dioxide 32 Anion Gap 10 BUN 22 Creatinine 0.86 Est GFR ( Amer) 110.5 Est GFR (Non-Af Amer) 91.3 BUN/Creatinine Ratio 25.6 H Glucose 136 H POC Glucose (mg/dL) Lactic Acid Calcium 9.1 LLE - inc c/d/i. distally nvi. Assessment: 58 yo M s/p LTHA with partial small bowel obstruction postop - readmitted with NG tube. Plan: Appreciate hospitalist and Gen Surg care Orthopedically - cont mobilization and post hip precautions prn analgesia - pt. is not reporting significant hip pain. Please call with any questions.
--- NOTE | 2019-05-07 11:17 | PN ---
Progress Note - Progress Note Date of Service: 05/07/19 SOAP: Subjective: Pt seen and examined. still obstipated; R-sided abdo pain. no appetite. Fatigued. ambulating with assistance no hip pain Objective: Temp Pulse Resp BP Pulse Ox 99.2 F 99 16 116/69 91 05/07/19 07:42 05/07/19 07:42 05/07/19 09:26 05/07/19 07:42 05/07/19 07:42 a and o x3, NGT output reviewed abdo: soft/ obese/ distended/ minimal tenderness at RLQ hypoactive BS \ labs noted wbc down Assessment: sbo vs ileus, HD stable Plan: continued watchful waiting. axr in am- OR tomorrow or Wednesday if no improvement OOB NPO, NGt
[2019-05-07] MEDS: Enoxaparin(*) 40 MG/0.4 ML SYR SUBCUT SCH (14:00)
[2019-05-07] MEDS: Ketorolac INJ* 30 MG/ML 1 ML VIAL IV PUSH PRN (17:15)
[2019-05-08] MEDS: Potassium Chloride IV* 40 MEQ in Lactated Ringers 1000 ML Bag* 1,000 ML IVPB SCH ×2 (04:57→21:56)
[2019-05-08 05:27] LABS: ABS Eosinophils 0.1 10^3/ul (0-0.6); ABS Lymphocytes 0.9 10^3/ul (1.0-4.8); ABS Monocytes 1.2 10^3/ul (0-0.8); ABS Neutrophils 6.1 10^3/ul (1.5-7.7); Eosinophil % 1.4 %; Hematocrit 38 % (42-52); Hemoglobin 13.1 g/dL (14.0-18.0); Lymphocyte % 10.3 %; Mean Corpuscular HGB Conc 34 g/dL (31-36); Mean Corpuscular Hemoglobin 31 pg (27-31); Mean Corpuscular Volume 89 fL (80-94); Mean Platelet Volume 7.9 fL (7.4-10.4); Platelet Count 324 10^3/uL (150-450); Red Blood Count 4.29 10^6 /uL (4.18-5.48); Red Cell Distribution Width 13 % (10-15); White Blood Count 8.3 10^3/uL (3.5-10.8)
[2019-05-08 05:44] LABS: BUN/Creatinine Ratio 29.9 (8-20); EGFR African American 109.1 (>60); EGFR Non-African American 90.1 (>60); Potassium 3.4 mmol/L (3.5-5.0)
[2019-05-08] MEDS: Insulin LISPRO* 1 UNITS UNIT SUBCUT SCH ×3 (05:52→22:13)
--- NOTE | 2019-05-08 08:14 | PN ---
Subjective Date of Service: 05/08/19 Interval History: Patient reports that he passed gas few times today, and his "stomach" is making rumbling noise. Still having output via the NG tube, and having abdominal distention and pain. Pain is tension like pain 05/08. No nausea, no vomiting. Objective Active Medications: Dextrose (D50w Syringe 50 Ml*) 12.5 gm IV PUSH .FOR FS < 60 - SS PRN PRN Reason: FS < 60 Enoxaparin Sodium (Lovenox(*)) 40 mg SUBCUT Q24H [facility] Last Admin: 05/07/19 14:00 Dose: 40 mg Potassium Chloride 40 meq/ (Lactated Ringer's) 1,020 mls @ 100 mls/hr IVPB Q10H [facility] Last Admin: 05/08/19 04:57 Dose: 100 mls/hr Insulin Human Lispro (Humalog*) 0 units SUBCUT Q6HR [facility]; Protocol Last Admin: 05/08/19 05:52 Dose: 2 units Ketorolac Tromethamine (Toradol Inj*) 30 mg IV PUSH Q6H PRN PRN Reason: PAIN Last Admin: 05/07/19 17:15 Dose: 30 mg Ondansetron HCl (Zofran Inj*) 4 mg IV Q4H PRN PRN Reason: NAUSEA/VOMITING Scopolamine (Transderm-Scop 1.5 Mg Patch*) 1 patch TRANSDERM Q72H PRN PRN Reason: NAUSEA Vital Signs - 8 hr 05/08/19 03:16 Temperature 97.6 F Pulse Rate 92 Respiratory 18 Rate Blood Pressure 133/83 (mmHg) O2 Sat by Pulse 91 Oximetry Oxygen Devices in Use Now: None Appearance: He is lying in bed, not in distress Eyes: PERRLA Ears/Nose/Mouth/Throat: Mucous Membranes Moist Respiratory: Clear to Palpation Cardiovascular: NL Sounds; No Murmurs; No JVD, RRR Abdominal: - - moderate abdominal distention, hypoactive bowel sounds, moderate abdominal tenderness Extremities: No Edema Skin: No Rash or Ulcers Neurological: Alert and Oriented x 3 Lines/Tubes/Other Access: Clean, Dry and Intact Naso-enteral Tube - having dark greenish drainage Result Diagrams: 05/08/19 05:20 05/08/19 05:20 Assess/Plan/Problems-Billing Assessment: 58 year old Male with history of DM, HTN, with recent Left hip replacement here with abdominal distention, pain and nausea, found to have partial SBO. - Patient Problems (1) Partial small bowel obstruction Current Visit: Yes Status: Acute Code(s): K56.600 - PARTIAL INTESTINAL OBSTRUCTION, UNSPECIFIED TO CAUSE SNOMED Code(s): 418086697 Comment: NG tube in place with drainage Had abdominal xray today awaiting further recs from Dr. Bedoya, possible surgery. NPO, IVF (2) History of diabetes mellitus Current Visit: Yes Status: Acute Code(s): Z86.39 - PERSONAL HISTORY OF ENDO , NUTRITIONAL AND METABOLIC DISEASE SNOMED Code(s): 508808953 Comment: hold home medication while NPO Insulin sliding scale (3) History of hypertension Current Visit: Yes Status: Acute Code(s): Z86.79 - PERSONAL HISTORY OF OTHER DISEASES OF THE CIRCULATORY SYSTEM SNOMED Code(s): 978098675 Comment: BP controlled, holding home meds while NPO (4) DVT prophylaxis Current Visit: Yes Status: Acute Code(s): Z29.9 - ENCOUNTER FOR PROPHYLACTIC MEASURES, UNSPECIFIED SNOMED Code(s): 038994400 Comment: Lovenox subQ 40mg (5) Hypokalemia Current Visit: Yes Status: Acute Code(s): E87.6 - HYPOKALEMIA SNOMED Code( s): 77204901 Comment: KCL added to LR on 05/07/19.
[2019-05-08] MEDS ORDERED: KCL 20 MEQ/100 ML IVPREMIX* 20 MEQ/100 ML BAG IV ONE (09:52)
--- NOTE | 2019-05-08 09:59 | PN ---
Progress Note - Progress Note Date of Service: 05/08/19 SOAP: Subjective: Still intermittent crampy abdominal pain Had a small amount of flatus last night Feels very distended Objective: Temp Pulse Resp BP Pulse Ox 98.5 F 92 18 139/72 94 05/08/19 08:20 05/08/19 08:20 05/08/19 08:20 05/08/19 08:20 05/08/19 08:20 Intake & Output 05/06/19 05/07/19 05/08/19 05/09/19 06:59 06:59 06:59 06:59 Intake Total 2946 1000 Output Total 2050 3375 600 Balance 896 -2375 -600 Weight 250 lb 250 lb Intake: IV Fluids 2946 1000 LR 1946 1000 Oral 0 0 Output: NG Tube Drainage Amount 1350 2375 300 Urine 700 1000 300 Other: # Bowel Movements 0 0 PEX: Comfortable Abs is distended and firm. Bowel sounds are present and are high pitched. Mild tenderness throughout without peritoneal signs AXR reviewed 05/08-marked distension of small bowel consistent with SBO CT from admission reviewed-transition point in small bowel noted. Assessment: Small bowel obstruction-worsening after 48 hours of non-operative management, persistent high NGT output and crampy abdominal pain. Care discussed with patient and his -I recommend surgery for treatment of obstruction as it is not improving with present care. Procedure discussed and the risks of, but not limited to, of bleeding, infection, bowel resection, ostomy, anastomotic leak, abscess, peritonititis with sepsis, injury to peritoneal and retroperitoneal structures were explained. Also the risks of anesthesia, recovery times and hospital stay were discussed, Plan: Laparoscopy, possible exploratory laparotomy with bowel resection today. NGT NPO/IVF Pre-op antibiotics
[2019-05-08] MEDS ORDERED: ceFOXitin 2 GM IVPREMIX* 2 GM/50 ML BAG ONE (13:18)
[2019-05-08] MEDS ORDERED: Propofol* 10 MG/ML 20 ML BTL ONE (13:42)
[2019-05-08] MEDS ORDERED: Ondansetron INJ* 2 MG/ML VIAL ONE (13:42)
[2019-05-08] MEDS ORDERED: fentaNYL* 50 MCG/ML 5 ML VIAL (250 MCG VIAL) ONE (13:42)
[2019-05-08] MEDS ORDERED: Midazolam* 1 MG/ML 5 ML VIAL (5 MG) ONE (13:42)
[2019-05-08] MEDS ORDERED: Lidocaine 2% PF * 5 ML VIAL ONE (13:42)
[2019-05-08] MEDS ORDERED: Rocuronium* 10 MG/ML VIAL ONE ×2 (13:42→16:21)
[2019-05-08] MEDS ORDERED: Succinylcholine* 20 MG/ML 10 ML VIAL ONE (13:42)
[2019-05-08] MEDS ORDERED: Dexamethasone IV* 4 MG/ML 1 ML (4 MG) ONE (13:42)
[2019-05-08] MEDS ORDERED: KETAMINE HCL* 50 MG/ML 10 ML VIAL ONE (13:43)
[2019-05-08] MEDS ORDERED: Phenylephrine 10 MG/ML VIAL* 1 ML VIAL ONE (13:43)
[2019-05-08] MEDS ORDERED: Bupivacaine 0.25% W/EPI* 10 ML SDV ONE (13:52)
[2019-05-08] MEDS ORDERED: Acetaminophen IV 1GM/100ML * 1,000 MG/100 ML VIAL IVPB ONE (15:22)
[2019-05-08] MEDS ORDERED: Naloxone* 0.4 MG/ML 1 ML VIAL IV PRN (15:22)
[2019-05-08] MEDS ORDERED: DiMENhydriNATE IV* 50 MG/ML VIAL IV PUSH PRN (15:22)
[2019-05-08] MEDS ORDERED: HYDROmorphone INJ1* 1 MG/ML SYRINGE IV PRN ×3 (15:22→17:30)
[2019-05-08] MEDS ORDERED: HYDROmorphone INJ1* 1 MG/ML SYRINGE ONE (16:23)
[2019-05-08] MEDS ORDERED: Neostigmine Methylsulfate* 1 MG/ML 10 ML VIAL (1 mg/ml) ONE (17:00)
[2019-05-08] MEDS ORDERED: Glycopyrrolate IV* 0.2 MG/ML 1 ML VIAL ONE (17:00)
--- NOTE | 2019-05-08 17:13 | OP ---
Operative Report - Blank - Operative Report Date of Operation: 05/08/19 Note: Brief Operative Note Preop Dx: SBO Postop Dx: same; plus Meckel's diverticulum Procedure: Laparoscopy; laparotomy; lysis of adhesions; resection of Meckel's diverticulum Anesthesia: GET Surgeon: [facility] [employer] Manager: FEI [place]; ORESTES King Fluids: 1600 ml RL EBL: < 50 ml Specimen: Meckel's diverticulum Drains: none Findings: dictated
[2019-05-08] MEDS ORDERED: Acetaminophen IV 1GM/100ML * 100 ML ONE (18:04)
[2019-05-08] MEDS ORDERED: Ketorolac INJ* 30 MG/ML 1 ML VIAL ONE (18:04)
[2019-05-08] MEDS: Ketorolac INJ* 30 MG/ML 1 ML VIAL IV PUSH PRN (18:06)
[2019-05-08] MEDS ORDERED: fentaNYL* 50 MCG/ML 2 ML VIAL (100 MCG VIAL) ONE (18:29)
[2019-05-08] MEDS: fentaNYL* 50 MCG/ML 2 ML VIAL (100 MCG VIAL) IV PRN ×2 (18:30→19:19)
--- NOTE | 2019-05-08 23:22 | OP ---
CC: Dr. Cass Jung * DATE OF OPERATION: 05/08/19 - ROOM #338 DATE OF : 60 SURGEON: Ismael Dalton M.D. RN HOUSE SUPERVISOR: ORESTES Chavez. ANESTHESIOLOGIST: Dr. Lee. ANESTHESIA: General with local. PRE-OP DIAGNOSIS: Small bowel obstruction. POST-OP DIAGNOSES: 1. Small bowel obstruction. 2. Meckel's diverticulum. OPERATIVE PROCEDURE: Diagnostic laparoscopy with conversion to exploratory laparotomy and lysis of adhesions with Meckel's diverticulectomy. ESTIMATED BLOOD LOSS: Less than 50 cc. IV FLUIDS: 1.6 L of crystalloid. SPECIMENS: Meckel's diverticulum. DRAINS: None. WOUND CLASSIFICATION: II. COMPLICATIONS: None. FINDINGS: The patient had distended proximal small bowel down to the area of the mid ileum and where there was series of adhesions were identified with some collapsed bowel distal to this with no single band across the obstruction noted on CT scan. Also, noted was a Meckel's diverticulum more distal to this, which was also knuckled under itself and after these adhesions were lysed, the Meckel' s diverticulum was excised. There was no evidence of any inflammation, however. The appendix was normal. BRIEF HISTORY: Mr. Shaquille Grijalva is a 58-year-old gentleman, who underwent elective left hip replacement last Wednesday. He was discharged home on and he developed nausea, vomiting, and severe abdominal distention and discomfort on Wednesday. He presented to the emergency room that evening and underwent a CT scan, which showed proximal small bowel, which was dilated with distal small bowel collapse, worrisome for a small bowel obstruction. He did not have prior abdominal surgeries other than a small umbilical hernia repair done at 5-year-old. Over the past several days, he has had a nasogastric tube inserted, which continues to drain large amounts and has had persisted abdominal distention with abdominal pain. At this point, he has not responded to nonoperative management and he has been taken to the operating room for laparoscopy, possible laparotomy. The procedure was discussed with the patient and his and the risks and benefits were discussed, and outlined in the preoperative progress note. DESCRIPTION OF PROCEDURE: Written informed consent was obtained, the abdomen was marked with indelible ink and preoperative antibiotics were administered. The patient was taken to the operating room, placed in the supine position. Sequential compression devices and a warming blanket were applied. General anesthesia was administered. Dickerson catheter was inserted. The abdomen was prepped and draped in a usual sterile fashion. Time-out verification was completed. Initially, a small vertical incision was made about 4 to 5 fingerbreadths above the umbilicus and the peritoneal cavity was entered under direct vision. A 12- mm blunt port was inserted and the abdomen was insufflated to 15 mmHg. Under direct vision, a 5-mm port was placed in the left mid upper abdomen and the second suprapubic port was placed. There was no evidence of obvious fluid within the abdomen. There was no purulence. The proximal small bowel appeared to be distended, but was unremarkable. We were then able to identify the cecum. The appendix appeared to be unremarkable. I was able to trace the terminal ileum back several feet, and there was area where there was fairly adherent to the omentum and we were able to skip this area and follow the more proximal collapse small bowel into an area where there was what appeared to be multiple natural adhesions between the mesentry and the small bowel. These were noninflammatory, but just proximal this was the area of the dilated small bowel that appeared that this was logically the site of the obstruction noted on CT scan. We extensively lysed these adhesions to free up the small bowel using the laparoscope. There were not any obvious masses or serosal change in the intestine as well. The small bowel more proximally remained distended. I then attempted to follow with these findings and the concern that there may have been more adhesive disease, I did look more distally and it appeared that there was a Meckel's diverticulum, which was quite adherent to the surrounding mesentery and had knuckled the small bowel and this was quite firm and attempted several times to elucidate the anatomy with the laparoscope. However , I was unable to comfortably identify the anatomy. With concern for mechanical obstruction, decision was made to make a small vertical incision. A midline incision was made above the umbilicus of about 4-1/2 inches. The abdomen was entered. We were able to free up the terminal ileum in the area of the Meckel's and free this up for some extent of adhesions. The Meckel's was not inflamed and it was unclear after freeing this up if this has been causing any obstruction, but I did perform a Meckel's diverticulectomy using a MARY ANNE 45 mm blue load of the stapler to divide the Meckel's at its base and send this off for pathology. Several 3-0 silk sutures were placed for hemostasis as well. There was adequate lumen noted in the bowel at the site. With these findings in mind and feeling that I had lysed all of the adhesions in the area that may have been the cause of the obstruction, the abdomen was irrigated with saline. Hemostasis was assured. Sponge, needle, laparotomy counts were reported as correct. The midline fascia was closed with interrupted #1 Vicryl suture. The skin at all incisions was approximated with stapling device. Dry sterile dressings were applied. The patient tolerated the procedure well and was taken to the recovery room in stable condition. [id number]/[facility] #: [id number] [place]
[2019-05-09] MEDS: Insulin LISPRO* 1 UNITS UNIT SUBCUT SCH ×5 (00:24→23:46)
[2019-05-09] MEDS: Ketorolac INJ* 30 MG/ML 1 ML VIAL IV PUSH PRN ×3 (00:29→15:30)
[2019-05-09] MEDS: Potassium Chloride IV* 40 MEQ in Lactated Ringers 1000 ML Bag* 1,000 ML IVPB SCH ×2 (04:40→07:32)
[2019-05-09 05:53] LABS: CO2 Carbon Dioxide 25 mmol/L (22-32); Calcium 8.3 mg/dL (8.6-10.3); Chloride 106 mmol/L (101-111); Magnesium 2.4 mg/dL (1.9-2.7); Sodium 139 mmol/L (135-145)
[2019-05-09 05:57] LABS: ABS Monocytes 1.1 10^3/ul (0-0.8); ABS Neutrophils 5.4 10^3/ul (1.5-7.7); Eosinophil % 0.5 %; Hematocrit 36 % (42-52); Hemoglobin 12.4 g/dL (14.0-18.0); Mean Corpuscular HGB Conc 34 g/dL (31-36); Mean Corpuscular Hemoglobin 31 pg (27-31); Mean Corpuscular Volume 90 fL (80-94); Mean Platelet Volume 7.4 fL (7.4-10.4); Platelet Count 345 10^3/uL (150-450); Red Blood Count 4.04 10^6 /uL (4.18-5.48); Red Cell Distribution Width 13 % (10-15); White Blood Count 7.5 10^3/uL (3.5-10.8)
[2019-05-09 05:59] LABS: Blood Urea Nitrogen 22 mg/dL (6-24); EGFR African American 107.6 (>60); EGFR Non-African American 88.9 (>60); Glucose 116 mg/dL (70-100); Phosphorus 4.2 mg/dL (2.5-5.0)
[2019-05-09 07:23] LABS: Anion Gap 8 mmol/L (2-11)
--- NOTE | 2019-05-09 08:30 | PN ---
Subjective Date of Service: 05/09/19 Interval History: status post surgery for Partial SBO. Had ex-lap with lysis of adhesion and Meckel's diverticulum. reports that he is feeling better today. Less abdominal discomfort, having some NG output but decreased. Objective Active Medications: Dextrose (D50w Syringe 50 Ml*) 12.5 gm IV PUSH .FOR FS < 60 - SS PRN PRN Reason: FS < 60 Hydromorphone HCl (Dilaudid Inj1s*) 1 mg IV Q2H PRN PRN Reason: PAIN - MODERATE Hydromorphone HCl (Dilaudid Inj1s*) 2 mg IV Q2H PRN PRN Reason: PAIN - SEVERE Potassium Chloride 40 meq/ (Lactated Ringer's) 1,020 mls @ 100 mls/hr IVPB Q10H [facility] Last Admin: 05/09/19 07:32 Dose: 100 mls/hr Insulin Human Lispro (Humalog*) 0 units SUBCUT Q6HR [facility]; Protocol Last Admin: 05/09/19 05:50 Dose: 2 units Ketorolac Tromethamine (Toradol Inj*) 30 mg IV PUSH Q6H PRN PRN Reason: PAIN Last Admin: 05/09/19 07:13 Dose: 30 mg Ondansetron HCl (Zofran Inj*) 4 mg IV Q4H PRN PRN Reason: NAUSEA/VOMITING Scopolamine (Transderm-Scop 1.5 Mg Patch*) 1 patch TRANSDERM Q72H PRN PRN Reason: NAUSEA Vital Signs - 8 hr 05/09/19 05/09/19 03:04 07:20 Temperature 98.5 F 98.9 F Pulse Rate 86 75 Respiratory 17 14 Rate Blood Pressure 129/68 130/74 (mmHg) O2 Sat by Pulse 96 95 Oximetry Appearance: Lying in bed, not in distress Eyes: PERRLA Ears/Nose/Mouth/Throat: Mucous Membranes Moist Respiratory: Clear to Auscultation Cardiovascular: RRR, No Edema Abdominal: No Hepatosplenomegaly, - - normoactive bowel sounds, soft, mildly tender at the RLQ, with mild distention. NG tube in place with green color outptut Extremities: No Edema Neurological: Alert and Oriented x 3 Lines/Tubes/Other Access: Clean, Dry and Intact Naso-enteral Tube Result Diagrams: 05/09/19 05:53 05/09/19 05:15 Assess/Plan/Problems-Billing Assessment: 58 year old Male with history of DM, HTN, with recent Left hip replacement here with abdominal distention, pain and nausea, found to have partial SBO, status post ex-lap with lysis of adhesion and Meckel's diverticulum. - Patient Problems (1) Partial small bowel obstruction Current Visit: Yes Status: Acute Code(s): K56.600 - PARTIAL INTESTINAL OBSTRUCTION, UNSPECIFIED TO CAUSE SNOMED Code(s): 461632018 Comment: status post ex-lap with lysis of adhesion and Meckel's diverticulum. doing better. NPO, IVF, NG tube in place. Surgery following. (2) History of diabetes mellitus Current Visit: Yes Status: Acute Code(s): Z86.39 - PERSONAL HISTORY OF ENDO , NUTRITIONAL AND METABOLIC DISEASE SNOMED Code(s): 981039361 Comment: hold home medication while NPO Insulin sliding scale (3) History of hypertension Current Visit: Yes Status: Acute Code(s): Z86.79 - PERSONAL HISTORY OF OTHER DISEASES OF THE CIRCULATORY SYSTEM SNOMED Code(s): 751647353 Comment: BP controlled, holding home meds while NPO (4) DVT prophylaxis Current Visit: Yes Status: Acute Code(s): Z29.9 - ENCOUNTER FOR PROPHYLACTIC MEASURES, UNSPECIFIED SNOMED Code(s): 016015178 Comment: SCD for now as he is POD # 1. can resume lovenox subQ tomorrow is no bleeding. he is high risk for DVT since he had Left hip replacement 05/02. (5) Hypokalemia Current Visit: Yes Status: Acute Code(s): E87.6 - HYPOKALEMIA SNOMED Code( s): 45472455 Comment: KCL added to LR on 05/07/19. blood work this AM- hemolyzed sample with get repeat blood draw.
--- NOTE | 2019-05-09 10:17 | PN ---
Progress Note - Progress Note Date of Service: 05/09/19 SOAP: Subjective: []Pt seen at bedside. His left hip feels "great". He looks forward to progressing with PT. Objective: []Gen: NAD LLE - dressing changed, incision c/d/i. distally nvi. Assessment: 58 yo M s/p LTHA SBO sp exlap Plan: Appreciate hospitalist and Gen Surg care Orthopedically - cont mobilization and post hip precautions prn analgesia - pt. is not reporting significant hip pain. Please call ortho with any questions. Vital Signs Temp 98.9 F 05/09/19 07:20 Pulse 75 05/09/19 07:20 Resp 16 05/09/19 07:40 BP 130/74 05/09/19 07:20 Pulse Ox 95 05/09/19 07:20 Intake & Output 05/08/19 05/09/19 05/09/19 18:59 06:59 18:59 Intake Total 1700 300 955 Output Total 1650 1100 Balance 50 -800 955 Intake: IV Fluids 1700 300 955 LR 1700 300 LR w 40mEq KCl 955 Oral 0 Output: NG Tube Drainage Amount 800 0 Urine 550 Dickerson 300 1100 Other: # Bowel Movements 0 Estimated Blood Loss 30 Comment Laboratory Last Values WBC 7.5 10^3/uL (3.5-10.8) 05/09/19 05:53 RBC 4.04 10^6 /uL (4.18-5.48) L 05/09/19 05:53 Hgb 12.4 g/dL (14.0-18.0) L 05/09/19 05:53 Hct 36 % (42-52) L 05/09/19 05:53 MCV 90 fL (80-94) 05/09/19 05:53 MCH 31 pg (27-31) 05/09/19 05:53 MCHC 34 g/dL (31-36) 05/09/19 05:53 RDW 13 % (10-15) 05/09/19 05:53 Plt Count 345 10^3/uL (150-450) 05/09/19 05:53 MPV 7.4 fL (7.4-10.4) 05/09/19 05:53 Neut % (Auto) 71.4 % 05/09/19 05:53 Lymph % (Auto) 13.0 % 05/09/19 05:53 Alpine % (Auto) 14.7 % 05/09/19 05:53 Eos % (Auto) 0.5 % 05/09/19 05:53 Baso % (Auto) 0.4 % 05/09/19 05:53 Absolute Neuts (auto) 5.4 10^3/ul (1.5-7.7) 05/09/19 05:53 Absolute Lymphs (auto) 1.0 10^3/ul (1.0-4.8) 05/09/19 05:53 Absolute Monos (auto) 1.1 10^3/ul (0-0.8) H 05/09/19 05:53 Absolute Eos (auto) 0.0 10^3/ul (0-0.6) 05/09/19 05:53 Absolute Basos (auto) 0.0 10^3/ul (0-0.2) 05/09/19 05:53 Absolute Nucleated RBC 0.0 10^3/ul 05/09/19 05:53 Nucleated RBC % 0.0 05/09/19 05:53 Sodium 139 mmol/L (135-145) 05/09/19 05:15 Potassium 4.4 mmol/L (3.5-5.0) 05/09/19 08:55 Chloride 106 mmol/L (101-111) 05/09/19 05:15 Carbon Dioxide 25 mmol/L (22-32) 05/09/19 05:15 Anion Gap 8 mmol/L (2-11) 05/09/19 05:15 BUN 22 mg/dL (6-24) 05/09/19 05:15 Creatinine 0.88 mg/dL (0.67-1.17) 05/09/19 05:15 Est GFR ( Amer) 107.6 (>60) 05/09/19 05:15 Est GFR (Non-Af Amer) 88.9 (>60) 05/09/19 05:15 BUN/Creatinine Ratio 25.0 (8-20) H 05/09/19 05:15 Glucose 116 mg/dL (70-100) H 05/09/19 05:15 POC Glucose (mg/dL) 132 mg/dL (70-100) H 05/09/19 05:43 Lactic Acid 0.9 mmol/L (0.5-2.0) 05/06/19 16:43 Calcium 8.3 mg/dL (8.6-10.3) L 05/09/19 05:15 Phosphorus 4.2 mg/dL (2.5-5.0) 05/09/19 05:15 Magnesium 2.4 mg/dL (1.9-2.7) 05/09/19 05:15 Total Bilirubin 1.00 mg/dL (0.2-1.0) 05/06/19 07:11 AST 35 U/L (13-39) 05/06/19 07:11 ALT 40 U/L (7-52) 05/06/19 07:11 Alkaline Phosphatase 77 U/L (34-104) 05/06/19 07:11 Troponin I 0.01 ng/mL (<0.04) 05/06/19 07:11 Total Protein 6.9 g/dL (6.4-8.9) 05/06/19 07:11 Albumin 3.8 g/dL (3.2-5.2) 05/06/19 07:11 Globulin 3.1 g/dL (2-4) 05/06/19 07:11 Albumin/Globulin Ratio 1.2 (1-3) 05/06/19 07:11 Lipase 24 U/L (11.0-82.0) 05/06/19 07:11
[2019-05-09] MEDS: Lactated Ringers 1000 ML Bag* 1,000 ML IV SCH (11:59)
--- NOTE | 2019-05-09 13:47 | PN ---
Progress Note - Progress Note Date of Service: 05/09/19 SOAP: Subjective: Feels much better, passed a little gas this morning Pain is adequately controlled Objective: Temp Pulse Resp BP Pulse Ox 99.2 F 85 14 129/68 96 05/09/19 11:34 05/09/19 11:34 05/09/19 11:34 05/09/19 11:34 05/09/19 11:34 Intake & Output 05/07/19 05/08/19 05/09/19 05/10/19 06:59 06:59 06:59 06:59 Intake Total 2946 1000 2000 1399 Output Total 2050 3375 2750 500 Balance 146 -9370 -750 899 Weight 250 lb Intake: IV Fluids 2946 1000 2000 1399 LR 1946 1000 2000 LR w 40mEq KCl 1399 Oral 0 0 0 Output: NG Tube Drainage Amount 1350 2375 800 Urine 700 1000 550 Simon 1400 500 Other: # Bowel Movements 0 0 0 Estimated Blood Loss 30 Comment PEX: Comfortable Lungs are clear Abd is soft and distended. Few decreased bowel sounds present. Dressing intact Laboratory Results - last 24 hr 05/08/19 05/08/19 05/08/19 13:58 17:35 20:43 WBC RBC Hgb Hct MCV MCH MCHC RDW Plt Count MPV Neut % (Auto) Lymph % (Auto) Pike % (Auto) Eos % (Auto) Baso % (Auto) Absolute Neuts (auto) Absolute Lymphs (auto) Absolute Monos (auto) Absolute Eos (auto) Absolute Basos (auto) Absolute Nucleated RBC Nucleated RBC % Sodium Potassium Chloride Carbon Dioxide Anion Gap BUN Creatinine Est GFR ( Amer) Est GFR (Non-Af Amer) BUN/Creatinine Ratio Glucose POC Glucose (mg/dL) 130 H 153 H 174 H Calcium Phosphorus Magnesium 05/09/19 05/09/19 05/09/19 00:17 05:15 05:43 WBC RBC Hgb Hct MCV MCH MCHC RDW Plt Count MPV Neut % (Auto) Lymph % (Auto) Pike % (Auto) Eos % (Auto) Baso % (Auto) Absolute Neuts (auto) Absolute Lymphs (auto) Absolute Monos (auto) Absolute Eos (auto) Absolute Basos (auto) Absolute Nucleated RBC Nucleated RBC % Sodium 139 Potassium TNP Chloride 106 Carbon Dioxide 25 Anion Gap 8 BUN 22 Creatinine 0.88 Est GFR ( Amer) 107.6 Est GFR (Non-Af Amer) 88.9 BUN/Creatinine Ratio 25.0 H Glucose 116 H POC Glucose (mg/dL) 154 H 132 H Calcium 8.3 L Phosphorus 4.2 Magnesium 2.4 05/09/19 05/09/19 05/09/19 05:53 08:55 12:01 WBC 7.5 RBC 4.04 L Hgb 12.4 L Hct 36 L MCV 90 MCH 31 MCHC 34 RDW 13 Plt Count 345 MPV 7.4 Neut % (Auto) 71.4 Lymph % (Auto) 13.0 Pike % (Auto) 14.7 Eos % (Auto) 0.5 Baso % (Auto) 0.4 Absolute Neuts (auto) 5.4 Absolute Lymphs (auto) 1.0 Absolute Monos (auto) 1.1 H Absolute Eos (auto) 0.0 Absolute Basos (auto) 0.0 Absolute Nucleated RBC 0.0 Nucleated RBC % 0.0 Sodium Potassium 4.4 Chloride Carbon Dioxide Anion Gap BUN Creatinine Est GFR ( Amer) Est GFR (Non-Af Amer) BUN/Creatinine Ratio Glucose POC Glucose (mg/dL) 141 H Calcium Phosphorus Magnesium Assessment: POD # 1 exlap for SBO-lysis of adhesions Ileus Plan: D/C simon and NGT Increase activity Pulmonary toilet IVF-sips of H20
[2019-05-09] MEDS: Enoxaparin(*) 40 MG/0.4 ML SYR SUBCUT SCH (18:16)
[2019-05-09] MEDS: Famotidine IV* 10 MG/ML 2 ML (20 mg) IV SLOW PU SCH (19:48)
[2019-05-10] MEDS: Lactated Ringers 1000 ML Bag* 1,000 ML IV SCH ×2 (00:09→14:08)
[2019-05-10] MEDS: Insulin LISPRO* 1 UNITS UNIT SUBCUT SCH ×4 (05:37→23:42)
[2019-05-10 07:17] LABS: ABS Eosinophils 0.1 10^3/ul (0-0.6); ABS Neutrophils 4.9 10^3/ul (1.5-7.7); Eosinophil % 1.5 %; Hematocrit 37 % (42-52); Hemoglobin 12.5 g/dL (14.0-18.0); Lymphocyte % 14.3 %; Mean Corpuscular HGB Conc 34 g/dL (31-36); Mean Corpuscular Hemoglobin 30 pg (27-31); Mean Corpuscular Volume 90 fL (80-94); Mean Platelet Volume 7.6 fL (7.4-10.4); Nucleated Red Blood Cells % 0.1; Platelet Count 359 10^3/uL (150-450); Red Blood Count 4.13 10^6 /uL (4.18-5.48); Red Cell Distribution Width 13 % (10-15); White Blood Count 7.1 10^3/uL (3.5-10.8)
[2019-05-10 07:24] LABS: BUN/Creatinine Ratio 24.5 (8-20); Calcium 8.3 mg/dL (8.6-10.3); EGFR African American 95.1 (>60); EGFR Non-African American 78.6 (>60); Potassium 3.8 mmol/L (3.5-5.0)
--- NOTE | 2019-05-10 09:12 | PN ---
Progress Note - Progress Note Date of Service: 05/10/19 SOAP: Subjective: Passing large amounts of flatus No N/V Minimal abd pain, ambulated in halls yesterday Objective: Temp Pulse Resp BP Pulse Ox 97.5 F 97 17 144/78 95 05/10/19 08:14 05/10/19 08:14 05/10/19 08:14 05/10/19 08:14 05/10/19 08:14 Intake & Output 05/08/19 05/09/19 05/10/19 05/11/19 06:59 06:59 06:59 06:59 Intake Total 1000 2000 2785 Output Total 3375 2750 1655 Balance -2375 -750 1130 Intake: IV Fluids 1000 2000 2305 LR 1000 2000 906 LR w 40mEq KCl 1399 Oral 0 0 480 Output: NG Tube Drainage Amount 2375 800 Urine 1406 000 1266 Dickerson 1400 500 Other: # Bowel Movements 0 0 0 Estimated Blood Loss 30 Comment PEX: Comfortable Abd is soft and slightly distended. Dressing intact. Bowel sounds present, some higher pitched. Assessment: POD# 2 s/p exlap for SBO Ileus Plan: Sips of clears IS PT-increase activity Lovenox
[2019-05-10] MEDS: Famotidine IV* 10 MG/ML 2 ML (20 mg) IV SLOW PU SCH ×2 (09:27→20:19)
[2019-05-10] MEDS: Ketorolac INJ* 30 MG/ML 1 ML VIAL IV PUSH PRN (16:10)
--- NOTE | 2019-05-10 17:16 | PN ---
Subjective Date of Service: 05/10/19 Interval History: Post op day 2 from exploratory lap, for SBO. Had NG tube out today, taking sips of clears Some pain near incision. Family History: Unchanged from Admission Social History: Unchanged from Admission Past Medical History: Unchanged from Admission Objective Active Medications: Dextrose (D50w Syringe 50 Ml*) 12.5 gm IV PUSH .FOR FS < 60 - SS PRN PRN Reason: FS < 60 Enoxaparin Sodium (Lovenox(*)) 40 mg SUBCUT Q24H [facility] Last Admin: 05/09/19 18:16 Dose: 40 mg Famotidine (Pepcid Iv*) 20 mg IV SLOW PU BID [facility] Last Admin: 05/10/19 09:27 Dose: 20 mg Hydromorphone HCl (Dilaudid Inj1s*) 1 mg IV Q2H PRN PRN Reason: PAIN - MODERATE Hydromorphone HCl (Dilaudid Inj1s*) 2 mg IV Q2H PRN PRN Reason: PAIN - SEVERE Lactated Ringer's (Lactated Ringers 1000 Ml Bag*) 1,000 mls @ 75 mls/hr IV PER RATE [facility] Last Admin: 05/10/19 14:08 Dose: 75 mls/hr Insulin Human Lispro (Humalog*) 0 units SUBCUT Q6HR [facility]; Protocol Last Admin: 05/10/19 12:55 Dose: 3 units Ketorolac Tromethamine (Toradol Inj*) 30 mg IV PUSH Q6H PRN PRN Reason: PAIN Last Admin: 05/10/19 16:10 Dose: 30 mg Ondansetron HCl (Zofran Inj*) 4 mg IV Q4H PRN PRN Reason: NAUSEA/VOMITING Scopolamine (Transderm-Scop 1.5 Mg Patch*) 1 patch TRANSDERM Q72H PRN PRN Reason: NAUSEA Vital Signs - 8 hr 05/10/19 05/10/19 05/10/19 09:20 11:47 15:25 Temperature 37.2 C 37.7 C Pulse Rate 103 90 Respiratory 17 16 20 Rate Blood Pressure 148/84 156/88 (mmHg) O2 Sat by Pulse 96 93 Oximetry Oxygen Devices in Use Now: None Appearance: alert, no distress Ears/Nose/Mouth/Throat: Clear Oropharnyx Neck: No Thyroid Enlargement, Masses Respiratory: Symmetrical Chest Expansion and Respiratory Effort, Clear to Auscultation Cardiovascular: NL Sounds; No Murmurs; No JVD, RRR Neurological: Alert and Oriented x 3 Lines/Tubes/Other Access: Clean, Dry and Intact Peripheral IV Nutrition: Taking PO's Result Diagrams: 05/10/19 06:45 05/10/19 06:45 Additional Lab and Data: Laboratory Tests 05/10/19 05/10/19 05/10/19 05:32 06:45 08:42 Glucose 147 H POC Glucose (mg/dL) 152 H 127 H 05/10/19 11:57 Glucose POC Glucose (mg/dL) 162 H Assess/Plan/Problems-Billing Assessment: 58 year old Male with history of DM, HTN, with recent Left hip replacement here with abdominal distention, pain and nausea, found to have partial SBO, status post ex-lap with lysis of adhesion and Meckel's diverticulum. - Patient Problems (1) Small bowel obstruction due to adhesions Current Visit: Yes Status: Acute Priority: High Code(s): K56.50 - INTESTNL ADHESIONS, UNSP TO PARTIAL VERSUS COMPLETE OBST SNOMED Code(s): 775643476 Comment: -Management per surgery -Discussed with Dr. Dalotn (2) Diabetes type 2, controlled Current Visit: Yes Status: Acute Priority: Medium Code(s): E11.9 - TYPE 2 DIABETES MELLITUS WITHOUT COMPLICATIONS SNOMED Code(s): 13879659 Comment: -Sugars under adequate control to allow healing -Continue sips of clears, will continue sliding scale insulin. (3) Hypertension Current Visit: Yes Status: Acute Priority: Medium Code(s): I10 - ESSENTIAL (PRIMARY) HYPERTENSION SNOMED Code(s): 32623097 Comment: -BP elevated due to discomfort and NPO status, not getting lisinopril/HCTZ -Will restart lisinopril when taking POs better. (4) DVT prophylaxis Current Visit: Yes Status: Acute Priority: Low Code(s): Z29.9 - ENCOUNTER FOR PROPHYLACTIC MEASURES, UNSPECIFIED SNOMED Code(s): 316162614 Comment: -Lovenox 40 qd is adequate. [facility] better Status and Disposition: inpatient
[2019-05-10] MEDS: Enoxaparin(*) 40 MG/0.4 ML SYR SUBCUT SCH (18:06)
[2019-05-11] MEDS: Lactated Ringers 1000 ML Bag* 1,000 ML IV SCH (03:15)
[2019-05-11] MEDS: Insulin LISPRO* 1 UNITS UNIT SUBCUT SCH ×2 (06:02→11:55)
[2019-05-11] MEDS: Famotidine IV* 10 MG/ML 2 ML (20 mg) IV SLOW PU SCH ×2 (07:25→21:16)
--- NOTE | 2019-05-11 11:03 | PN ---
Progress Note - Progress Note Date of Service: 05/11/19 Note: S: POD #3. Passing more flatus. No BM. Bibiana sips clears, but feels "full" if he drinks too much/fast. Ambulating. Urinating well. O: Vital Signs - 8 hr 05/11/19 05/11/19 05/11/19 07:22 07:35 07:37 Temperature 98.2 F 98.8 F Pulse Rate 80 89 Respiratory 18 18 18 Rate Blood Pressure 150/79 (mmHg) O2 Sat by Pulse 95 Oximetry Intake and Output Last 24 Hours 05/09/19 05/10/19 05/11/19 05/12/19 06:59 06:59 06:59 06:59 Intake Total 1999 2785 2460 Output Total 2750 1655 2375 Balance -750 1130 85 Intake: IV Fluids 19995 1999 LR 1999 906 2000 LR w 40mEq KCl 1399 Oral 0 480 460 Output: NG Tube Drainage Amount 800 Urine 550 1155 2375 Dickerson 1400 500 Other: Estimated Void Medium # Bowel Movements 0 0 0 Estimated Blood Loss 30 Comment # Voids 2 Gen: appears comfortable; NAD Heart: reg Lungs clear Abd: obese; +BS; incisions ok; soft; mild RLQ and midline incisional tenderness ; remainder soft, nontender A: s/p laparoscopy-> laparotomy, JUN, rsxn Meckel's diverticulum, improving P: cont clears; d/c fingersticks; heplock IV
[2019-05-11] MEDS: Ketorolac INJ* 30 MG/ML 1 ML VIAL IV PUSH PRN (16:52)
[2019-05-11] MEDS: Enoxaparin(*) 40 MG/0.4 ML SYR SUBCUT SCH (16:53)
--- NOTE | 2019-05-11 18:15 | PN ---
Subjective Date of Service: 05/11/19 Interval History: Patient has been tolerating liquids all day. Little flatus,no stools. Abdomen still feels distended. Has been walking around "the block" 4 times today. PT is working with LT hip. Has some more swelling and tingling in LT leg. Family History: Unchanged from Admission Social History: Unchanged from Admission Past Medical History: Unchanged from Admission Objective Active Medications: Dextrose (D50w Syringe 50 Ml*) 12.5 gm IV PUSH .FOR FS < 60 - SS PRN PRN Reason: FS < 60 Enoxaparin Sodium (Lovenox(*)) 40 mg SUBCUT Q24H COUNTS [facility]CLUDE 234 BEDS AT [facility] Last Admin: 05/11/19 16:53 Dose: 40 mg Famotidine (Pepcid Iv*) 20 mg IV SLOW PU BID COUNTS INCLUDE 234 BEDS AT THE [facility] Last Admin: 05/11/19 07:25 Dose: 20 mg Hydromorphone HCl (Dilaudid Inj1s*) 1 mg IV Q2H PRN PRN Reason: PAIN - MODERATE Hydromorphone HCl (Dilaudid Inj1s*) 2 mg IV Q2H PRN PRN Reason: PAIN - SEVERE Lactated Ringer's (Lactated Ringers 1000 Ml Bag*) 1,000 mls @ 75 mls/hr IV PER RATE COUNTS INCLUDE 234 BEDS AT THE [facility] Last Admin: 05/11/19 03:15 Dose: 75 mls/hr Ketorolac Tromethamine (Toradol Inj*) 30 mg IV PUSH Q6H PRN PRN Reason: PAIN Last Admin: 05/11/19 16:52 Dose: 30 mg Ondansetron HCl (Zofran Inj*) 4 mg IV Q4H PRN PRN Reason: NAUSEA/VOMITING Scopolamine (Transderm-Scop 1.5 Mg Patch*) 1 patch TRANSDERM Q72H PRN PRN Reason: NAUSEA Vital Signs - 8 hr 05/11/19 05/11/19 11:06 15:45 Temperature 37.3 C 37.1 C Pulse Rate 90 88 Respiratory 18 15 Rate Blood Pressure 158/80 130/78 (mmHg) O2 Sat by Pulse 93 97 Oximetry Oxygen Devices in Use Now: None Appearance: alert, no distress Neck: Trachea Midline Respiratory: Clear to Auscultation, Clear to Percussion Cardiovascular: NL Sounds; No Murmurs; No JVD, RRR Abdominal: No Hepatosplenomegaly, - - distended, soft, +BS Extremities: - - 1+ edema LLE, calf enlarged Neurological: Alert and Oriented x 3 Lines/Tubes/Other Access: Clean, Dry and Intact Peripheral IV Nutrition: Taking PO's Result Diagrams: 05/10/19 06:45 05/10/19 06:45 Additional Lab and Data: Laboratory Tests 05/10/19 05/10/19 05/11/19 11:57 18:08 06:01 POC Glucose (mg/dL) 162 H 130 H 122 H Assess/Plan/Problems-Billing Assessment: 58 year old Male with history of DM, HTN, with recent Left hip replacement here with abdominal distention, pain and nausea, found to have partial SBO, status post ex-lap with lysis of adhesion and Meckel's diverticulum. - Patient Problems (1) Small bowel obstruction due to adhesions Current Visit: Yes Status: Acute Priority: High Code(s): K56.50 - INTESTNL ADHESIONS, UNSP TO PARTIAL VERSUS COMPLETE OBST SNOMED Code(s): 166904801 Comment: -Management per surgery -Discussed with Dr. Dalton (2) Diabetes type 2, controlled Current Visit: Yes Status: Acute Priority: Medium Code(s): E11.9 - TYPE 2 DIABETES MELLITUS WITHOUT COMPLICATIONS SNOMED Code(s): 62798144 Comment: -Sugars under adequate control to allow healing -Continue sips of clears, will continue sliding scale insulin. (3) Hypertension Current Visit: Yes Status: Acute Priority: Medium Code(s): I10 - ESSENTIAL (PRIMARY) HYPERTENSION SNOMED Code(s): 55032792 Comment: -BP has been elevated off and on due to discomfort and NPO status, not getting lisinopril/HCTZ -Will restart lisinopril when taking POs better. (4) DVT prophylaxis Current Visit: Yes Status: Acute Priority: Low Code(s): Z29.9 - ENCOUNTER FOR PROPHYLACTIC MEASURES, UNSPECIFIED SNOMED Code(s): 103348862 Comment: -Lovenox 40 qd is adequate. -Can return to Eliquis when taking POs, eating better -Will check for DVT tonight or in AM, due to LLE swelling Status and Disposition: inpatient
[2019-05-12] MEDS: Famotidine IV* 10 MG/ML 2 ML (20 mg) IV SLOW PU SCH ×2 (08:08→20:22)
--- NOTE | 2019-05-12 09:05 | PN ---
Progress Note - Progress Note Date of Service: 05/12/19 SOAP: Subjective: Had large BM this morning No N/V and tolerated sips of clears yesterday Belching quite a bit Intermittent incisional pain Ambulating in halls Objective: Temp Pulse Resp BP Pulse Ox 99 F 56 18 145/80 97 05/12/19 07:31 05/12/19 07:31 05/12/19 07:31 05/12/19 07:31 05/12/19 07:31 Intake & Output 05/10/19 05/11/19 05/12/19 05/13/19 06:59 06:59 06:59 06:59 Intake Total 2785 2460 1810 Output Total 1655 2375 1260 Balance 1130 85 550 Intake: IV Fluids 2305 2000 LR 906 2000 LR w 40mEq KCl 1399 Oral 954 174 1670 Output: Urine 1155 2375 1260 Dickerson 500 Other: Estimated Void Large Date of Last Bowel Movement # Bowel Movements 0 0 1 Estimated Stool Amount Large # Voids 1 PEX: Comfortable Abd is soft and slightly distended. Incision CDI. Bowel sounds are present, some high pitched and tinkling. Appropriate incisional tenderness. Assessment: POD# 4 s/p exlap for SBO with lysis of adhesions Ileus-still remains distended. Follow closely Pathology noted Plan: Full liquids po Increase activity.
--- NOTE | 2019-05-12 16:21 | PN ---
Subjective Date of Service: 05/12/19 Interval History: no acute events overnight, afebrile having mix of formed/liquid BMs. Passing gas no abdominal pain, nausea or vomiting. tolerating full liquid diet did not sleep well no CP, SOB, F/C negative duplex left leg for DVT last night. Family History: Unchanged from Admission Social History: Unchanged from Admission Past Medical History: Unchanged from Admission Objective Active Medications: Dextrose (D50w Syringe 50 Ml*) 12.5 gm IV PUSH .FOR FS < 60 - SS PRN PRN Reason: FS < 60 Enoxaparin Sodium (Lovenox(*)) 40 mg SUBCUT Q24H [facility] Last Admin: 05/11/19 16:53 Dose: 40 mg Famotidine (Pepcid Iv*) 20 mg IV SLOW PU BID [facility] Last Admin: 05/12/19 08:08 Dose: 20 mg Hydromorphone HCl (Dilaudid Inj1s*) 1 mg IV Q2H PRN PRN Reason: PAIN - MODERATE Hydromorphone HCl (Dilaudid Inj1s*) 2 mg IV Q2H PRN PRN Reason: PAIN - SEVERE Lactated Ringer's (Lactated Ringers 1000 Ml Bag*) 1,000 mls @ 75 mls/hr IV PER RATE [facility] Last Admin: 05/11/19 03:15 Dose: 75 mls/hr Ketorolac Tromethamine (Toradol Inj*) 30 mg IV PUSH Q6H PRN PRN Reason: PAIN Last Admin: 05/11/19 16:52 Dose: 30 mg Ondansetron HCl (Zofran Inj*) 4 mg IV Q4H PRN PRN Reason: NAUSEA/VOMITING Scopolamine (Transderm-Scop 1.5 Mg Patch*) 1 patch TRANSDERM Q72H PRN PRN Reason: NAUSEA Vital Signs - 8 hr 05/12/19 05/12/19 11:07 15:03 Temperature 98.6 F 98.8 F Pulse Rate 84 90 Respiratory 18 16 Rate Blood Pressure 145/87 125/71 (mmHg) O2 Sat by Pulse 94 98 Oximetry Oxygen Devices in Use Now: None Appearance: NAD Eyes: No Scleral Icterus Ears/Nose/Mouth/Throat: NL Teeth, Lips, Gums Neck: NL Appearance and Movements; NL JVP, Trachea Midline Respiratory: Symmetrical Chest Expansion and Respiratory Effort, Clear to Auscultation Cardiovascular: NL Sounds; No Murmurs; No JVD, RRR Abdominal: - - soft, obese, nontender. midline vertical incision c/d/i. no rebound or guarding. Extremities: - - LLE 1+ edema Skin: No Rash or Ulcers Neurological: Alert and Oriented x 3, NL Sensation, NL Muscle Strength and Tone Nutrition: Taking PO's Result Diagrams: 05/10/19 06:45 05/10/19 06:45 Additional Lab and Data: Assess/Plan/Problems-Billing Assessment: 58 year old Male PMH NIDDM, HTN, with recent (6.4)Left hip replacement here with abdominal distention, pain and nausea, found to have partial SBO, status post ex-lap with lysis of adhesion and Meckel's diverticulum. - Patient Problems (1) Small bowel obstruction due to adhesions Current Visit: Yes Status: Acute Priority: High Code(s): K56.50 - INTESTNL ADHESIONS, UNSP TO PARTIAL VERSUS COMPLETE OBST SNOMED Code(s): 158837095 Comment: -Management per surgery -tolerating full liquid diet, no n/v. +BMs (2) Diabetes type 2, controlled Current Visit: Yes Status: Acute Priority: Medium Code(s): E11.9 - TYPE 2 DIABETES MELLITUS WITHOUT COMPLICATIONS SNOMED Code(s): 34106174 Comment: -Sugars under adequate control to allow healing -continue sliding scale insulin. (3) Hypertension Current Visit: Yes Status: Acute Priority: Medium Code(s): I10 - ESSENTIAL (PRIMARY) HYPERTENSION SNOMED Code(s): 95757474 Comment: -not yet getting lisinopril 20mg/25mg HCTZ SBP 120-145 today. -Will restart lisinopril 10mg tomorrow. (4) Status post total replacement of left hip Current Visit: No Status: Acute Code(s): Z96.642 - PRESENCE OF LEFT ARTIFICIAL HIP JOINT SNOMED Code(s): 422234977086 Comment: continue lovenox, then home eliquis Status and Disposition: inpatient
[2019-05-12] MEDS: Enoxaparin(*) 40 MG/0.4 ML SYR SUBCUT SCH (18:20)
[2019-05-12] MEDS ORDERED: Dextrose 50% Syringe 50 ML* 25 GM/50 ML SYRINGE IV PUSH PRN (21:27)
[2019-05-12] MEDS: Insulin LISPRO* 1 UNITS UNIT SUBCUT SCH (22:23)
[2019-05-13] MEDS: Insulin LISPRO* 1 UNITS UNIT SUBCUT SCH ×4 (08:14→21:11)
[2019-05-13] MEDS: Famotidine IV* 10 MG/ML 2 ML (20 mg) IV SLOW PU SCH ×2 (08:14→21:12)
[2019-05-13] MEDS: Lisinopril TAB* 10 MG PO SCH (08:15)
--- NOTE | 2019-05-13 09:42 | PN ---
Progress Note - Progress Note Date of Service: 05/13/19 SOAP: Subjective: [place] poorly yesterday and feels it was due to high blood sugars Had 3 large loose BM's this AM Still feels somewhat distended. No N/V and is tolerating full liquids Objective: Temp Pulse Resp BP Pulse Ox 98.4 F 87 18 126/79 97 05/13/19 07:11 05/13/19 07:11 05/13/19 08:00 05/13/19 07:11 05/13/19 07:11 Intake & Output 05/11/19 05/12/19 05/13/19 05/14/19 06:59 06:59 06:59 06:59 Intake Total 2460 1810 1050 Output Total 2375 1260 1105 Balance 85 550 -55 Intake: IV Fluids 1999 LR 2000 Oral 460 1810 1050 Output: Urine 2375 1260 1105 Other: Estimated Void Large Date of Last Bowel 05/13/19 Movement # Bowel Movements 0 1 1 1 Estimated Stool Amount Large Medium Large # Voids 1 PEX: Abd is soft and distended. Incision is clean and dry. Bowel sounds are present and are hyperactive, more normal pitch than yesterday. Assessment: POD# 5 s/p exlap for SBO with lysis of adhesions Ileus-resolving Plan: Advance diet to regular today Increase activity If tolerates, OK for d/c from surgical standpoint tomorrow.
--- NOTE | 2019-05-13 10:30 | PN ---
Progress Note - Progress Note Date of Service: 05/13/19 SOAP: Subjective: Pt is doing well pain is controlled. Denies F/C, CP/SOB or calf pain. Objective: PE- 58 y/o WDWN M NAD, A&Ox3 LLE- dressing changed, inc c/d/i, calf soft NT, NVI Vital Signs Temp Pulse Resp BP Pulse Ox 98.4 F 87 18 126/79 97 05/13/19 07:11 05/13/19 07:11 05/13/19 08:00 05/13/19 07:11 05/13/19 07:11 Laboratory Results - last 24 hr 05/12/19 05/13/19 20:21 08:04 POC Glucose (mg/dL) 230 H 148 H Assessment: 58 yo M s/p LTHA SBO sp exlap Plan: Appreciate hospitalist and Gen Surg care Orthopedically - cont mobilization and post hip precautions prn analgesia - pt. is not reporting significant hip pain. Please call ortho with any questions. Dispo per general surgery team
[2019-05-13] MEDS: Enoxaparin(*) 40 MG/0.4 ML SYR SUBCUT SCH (18:26)
--- NOTE | 2019-05-13 21:56 | PN ---
Subjective Date of Service: 05/13/19 Interval History: no acute events overnight, afebrile 3 large BM in AM then smaller mid day. Distened abdomen. no n/v. tolerated soup, sliced carrots, jello but omelette did not appeal to him. Family History: Unchanged from Admission Social History: Unchanged from Admission Past Medical History: Unchanged from Admission Objective Active Medications: Dextrose (D50w Syringe 50 Ml*) 12.5 gm IV PUSH .FOR FS < 60 - SS PRN PRN Reason: FS < 60 Enoxaparin Sodium (Lovenox(*)) 40 mg SUBCUT Q24H [facility] Last Admin: 05/13/19 18:26 Dose: 40 mg Famotidine (Pepcid Iv*) 20 mg IV SLOW PU BID [facility] Last Admin: 05/13/19 21:12 Dose: 20 mg Hydromorphone HCl (Dilaudid Inj1s*) 1 mg IV Q2H PRN PRN Reason: PAIN - MODERATE Hydromorphone HCl (Dilaudid Inj1s*) 2 mg IV Q2H PRN PRN Reason: PAIN - SEVERE Lactated Ringer's (Lactated Ringers 1000 Ml Bag*) 1,000 mls @ 75 mls/hr IV PER RATE [facility] Last Admin: 05/11/19 03:15 Dose: 75 mls/hr Insulin Human Lispro (Humalog*) 0 units SUBCUT ACHS [facility]; Protocol Last Admin: 05/13/19 21:11 Dose: 3 units Ketorolac Tromethamine (Toradol Inj*) 30 mg IV PUSH Q6H PRN PRN Reason: PAIN Last Admin: 05/11/19 16:52 Dose: 30 mg Lisinopril (Prinivil Tab*) 10 mg PO DAILY [facility] Last Admin: 05/13/19 08:15 Dose: 10 mg Ondansetron HCl (Zofran Inj*) 4 mg IV Q4H PRN PRN Reason: NAUSEA/VOMITING Scopolamine (Transderm-Scop 1.5 Mg Patch*) 1 patch TRANSDERM Q72H PRN PRN Reason: NAUSEA Vital Signs - 8 hr 05/13/19 05/13/19 05/13/19 15:54 20:20 20:43 Temperature 99.4 F 98.5 F Pulse Rate 92 103 Respiratory 18 18 18 Rate Blood Pressure 125/72 124/74 (mmHg) O2 Sat by Pulse 96 96 Oximetry Oxygen Devices in Use Now: None Appearance: NAD Eyes: No Scleral Icterus Ears/Nose/Mouth/Throat: NL Teeth, Lips, Gums Neck: NL Appearance and Movements; NL JVP Respiratory: Symmetrical Chest Expansion and Respiratory Effort, Clear to Auscultation Cardiovascular: NL Sounds; No Murmurs; No JVD, RRR, No Edema Abdominal: - - distended, soft. nontender Extremities: No Edema Skin: No Rash or Ulcers Neurological: Alert and Oriented x 3, NL Sensation Nutrition: Taking PO's Result Diagrams: 05/10/19 06:45 05/10/19 06:45 Additional Lab and Data: Laboratory Results - last 24 hr 05/13/19 05/13/19 08:04 11:56 POC Glucose (mg/dL) 148 H 161 H Assess/Plan/Problems-Billing Assessment: 58 year old Male PMH NIDDM, HTN, with recent (6.4)Left hip replacement here with abdominal distention, pain and nausea, found to have partial SBO, status post ex-lap with lysis of adhesion and Meckel's diverticulum. - Patient Problems (1) Small bowel obstruction due to adhesions Current Visit: Yes Status: Acute Priority: High Code(s): K56.50 - INTESTNL ADHESIONS, UNSP TO PARTIAL VERSUS COMPLETE OBST SNOMED Code(s): 437329788 Comment: -Management per surgery -tolerating regular diet, no n/v. +BMs (2) Diabetes type 2, controlled Current Visit: Yes Status: Acute Priority: Medium Code(s): E11.9 - TYPE 2 DIABETES MELLITUS WITHOUT COMPLICATIONS SNOMED Code(s): 01824635 Comment: -worse last night (230), likely with better intake -continue sliding scale insulin but achs instead of prior q6 (3) Hypertension Current Visit: Yes Status: Acute Priority: Medium Code(s): I10 - ESSENTIAL (PRIMARY) HYPERTENSION SNOMED Code(s): 19522733 Comment: -home is lisinopril 20mg/25mg HCTZ - SBP 110-120. -continue lisinopril 10mg tomorrow. (4) Status post total replacement of left hip Current Visit: No Status: Acute Code(s): Z96.642 - PRESENCE OF LEFT ARTIFICIAL HIP JOINT SNOMED Code(s): 471704239611 Comment: continue lovenox, then home eliquis Status and Disposition: inpatient
[2019-05-14 07:36] VITALS: BP 123/68
[2019-05-14] MEDS: Famotidine IV* 10 MG/ML 2 ML (20 mg) IV SLOW PU SCH (08:08)
[2019-05-14] MEDS: Lisinopril TAB* 10 MG PO SCH (08:08)
--- NOTE | 2019-05-14 09:25 | PN ---
Progress Note - Progress Note Date of Service: 05/14/19 SOAP: Subjective: Doing well, another BM last night and passing flatus Tolerating regular food No pain meds needed. Objective: Temp Pulse Resp BP Pulse Ox 97.5 F 98 16 123/68 98 05/14/19 07:34 05/14/19 07:34 05/14/19 08:00 05/14/19 07:34 05/14/19 07:34 Intake & Output 05/12/19 05/13/19 05/14/19 05/15/19 06:59 06:59 06:59 06:59 Intake Total 1810 1050 2300 Output Total 1260 1105 375 Balance 550 -55 1925 Intake: Oral 1810 1050 2300 Output: Urine 1260 1105 375 Other: Estimated Void Large Large Date of Last Bowel 05/13/19 05/14/19 Movement # Bowel Movements 1 1 1 Estimated Stool Amount Large Medium Medium # Voids 1 1 PEX: Abd is soft and slightly distended. Bowel sounds are present and are normoactive Incision CDI without redness. Assessment: S/P exlap for SBO--lysis of adhesions Ileus-resolved Tolerating regular diet Plan: D/C home today-OK wit surgery Instructions given Follow up arranged in office for later this week
--- NOTE | 2019-05-14 09:26 | PN ---
Subjective Interval History: afebrile no acute events overnight. walking the halls this AM. tolerated regular diet for dinner liquid BM last night, some flatus so far this AM some pressure/discomfort only 2/10 near abdomen incision, not needing opioids. no n/v Family History: Unchanged from Admission Social History: Unchanged from Admission Past Medical History: Unchanged from Admission Objective Active Medications: Dextrose (D50w Syringe 50 Ml*) 12.5 gm IV PUSH .FOR FS < 60 - SS PRN PRN Reason: FS < 60 Enoxaparin Sodium (Lovenox(*)) 40 mg SUBCUT Q24H [facility] Last Admin: 05/13/19 18:26 Dose: 40 mg Famotidine (Pepcid Iv*) 20 mg IV SLOW PU BID [facility] Last Admin: 05/14/19 08:08 Dose: 20 mg Hydromorphone HCl (Dilaudid Inj1s*) 1 mg IV Q2H PRN PRN Reason: PAIN - MODERATE Hydromorphone HCl (Dilaudid Inj1s*) 2 mg IV Q2H PRN PRN Reason: PAIN - SEVERE Lactated Ringer's (Lactated Ringers 1000 Ml Bag*) 1,000 mls @ 75 mls/hr IV PER RATE [facility] Last Admin: 05/11/19 03:15 Dose: 75 mls/hr Insulin Human Lispro (Humalog*) 0 units SUBCUT ACHS [facility]; Protocol Last Admin: 05/13/19 21:11 Dose: 3 units Ketorolac Tromethamine (Toradol Inj*) 30 mg IV PUSH Q6H PRN PRN Reason: PAIN Last Admin: 05/11/19 16:52 Dose: 30 mg Lisinopril (Prinivil Tab*) 10 mg PO DAILY [facility] Last Admin: 05/14/19 08:08 Dose: 10 mg Ondansetron HCl (Zofran Inj*) 4 mg IV Q4H PRN PRN Reason: NAUSEA/VOMITING Scopolamine (Transderm-Scop 1.5 Mg Patch*) 1 patch TRANSDERM Q72H PRN PRN Reason: NAUSEA Vital Signs - 8 hr 05/14/19 05/14/19 05/14/19 03:32 07:34 08:00 Temperature 98.3 F 97.5 F Pulse Rate 99 98 Respiratory 17 18 16 Rate Blood Pressure 113/73 123/68 (mmHg) O2 Sat by Pulse 94 98 Oximetry Oxygen Devices in Use Now: None Appearance: walking the halls Nutrition: Taking PO's Result Diagrams: 05/10/19 06:45 05/10/19 06:45 Additional Lab and Data: Laboratory Results - last 24 hr 05/13/19 05/13/19 05/13/19 11:56 16:52 21:06 POC Glucose (mg/dL) 161 H 132 H 189 H 05/14/19 08:07 POC Glucose (mg/dL) 153 H Assess/Plan/Problems-Billing Assessment: 58 year old Male PMH NIDDM, HTN, with recent (6.4)Left hip replacement here with abdominal distention, pain and nausea, found to have partial SBO, status post ex-lap with lysis of adhesion and Meckel's diverticulum. - Patient Problems (1) Small bowel obstruction due to adhesions Current Visit: Yes Status: Acute Priority: High Code(s): K56.50 - INTESTNL ADHESIONS, UNSP TO PARTIAL VERSUS COMPLETE OBST SNOMED Code(s): 123850156 Comment: -Management per surgery -tolerating regular diet, no n/v. +BMs - likely discharge today. (2) Diabetes type 2, controlled Current Visit: Yes Status: Acute Priority: Medium Code(s): E11.9 - TYPE 2 DIABETES MELLITUS WITHOUT COMPLICATIONS SNOMED Code(s): 24779965 Comment: BG 130-190 yesterday on , trulicity at home (both held here) -continue sliding scale insulin achs (3) Hypertension Current Visit: Yes Status: Acute Priority: Medium Code(s): I10 - ESSENTIAL (PRIMARY) HYPERTENSION SNOMED Code(s): 52654641 Comment: -home is lisinopril 20mg/25mg HCTZ. okay to resume on d/c - SBP 110-120. -continue lisinopril 10mg (4) Status post total replacement of left hip Current Visit: No Status: Acute Code(s): Z96.642 - PRESENCE OF LEFT ARTIFICIAL HIP JOINT SNOMED Code(s): 932534256301 Comment: continue lovenox, then home eliquis on d/c (for his hip fx surgery) Status and Disposition: inpatient, discharge today.
[2019-05-14] MEDS: Insulin LISPRO* 1 UNITS UNIT SUBCUT SCH (09:57)
--- NOTE | 2019-05-14 11:03 | PN ---
Progress Note - Progress Note Date of Service: 05/14/19 SOAP: Subjective: Pt is doing well. Ambulating well with minimal pain. Having bowel movement. Denies F/C, CP/SOB or calf pain Objective: PE- 58 y/o WDWN M NAD LLE- dressing c/d/i, calf soft NT, +DF/PF ankle, NVI distally Vital Signs Temp Pulse Resp BP Pulse Ox 97.5 F 98 16 123/68 98 05/14/19 07:34 05/14/19 07:34 05/14/19 08:00 05/14/19 07:34 05/14/19 07:34 Laboratory Results - last 24 hr 05/13/19 05/13/19 05/13/19 11:56 16:52 21:06 POC Glucose (mg/dL) 161 H 132 H 189 H 05/14/19 08:07 POC Glucose (mg/dL) 153 H Assessment: 58 yo M s/p LTHA SBO sp exlap Plan: Appreciate hospitalist and Gen Surg care Orthopedically - cont mobilization and post hip precautions Pain medication as needed Eliquis for dvt prophylaxis x 1 month post op. DC to home today per surgery and medicine Follow up with Dr. Jung next Wednesday- 1 week
[2019-05-14] MEDS: Ketorolac INJ* 30 MG/ML 1 ML VIAL IV PUSH PRN (11:09)
[2019-05-14] MEDS ORDERED: Ibuprofen TAB* 400 MG PO ONE (11:16)
--- NOTE | 2019-05-14 15:02 | DS ---
DISCHARGE SUMMARY: DATE OF ADMISSION: 05/06/19 DATE OF DISCHARGE: 05/14/19 ADMITTING PROVIDER: Meagan Geronimo NP. PRIMARY CARE PROVIDER: Dr. Isaac Huang. GENERAL SURGEON: Dr. Ismael Dalton. CHIEF COMPLAINT: Abdominal pain, nausea, vomiting. PRINCIPAL DIAGNOSIS: Small-bowel obstruction, likely secondary to intussusception of Meckel's divert iculum, status post ex lap and bowel resection. HISTORY OF PRESENT ILLNESS/HOSPITAL COURSE: Shaquille Grijalva is 58-year-old male with past medical his tory of [id number] diabetes mellitus, hypertension, hypercholesterolemia who presented wit h 3 days of abdominal distention, vomiting. He presented to [facility] [place] and had a CTA revealin g small-bowel obstruction. NG tube was placed, general surgery was consulted, and the patient was man aged medically initially, but did not improve and was eventually taken to the operating room on 05/08, hospital day #3. Also, with abdominal adhesions, which may have been contributing to the obstru ction. Only prior abdominal surgery had been an umbilical hernia repair at 5 years old. He slowly i mproved postoperatively with advancement of diet, was tolerating a regular diet on the day prior to a dmission, and was considered stable for discharge home with followup next with general surgery. He h ad some swelling in his lower left extremity. A Doppler was obtained on 05/11/19, which showed no ev idence of DVT. Of note, he had a left hip replacement on 05/02/19, four days prior to admission. He had been on Eliquis and he was given Lovenox in the interval, but returned to Eliquis. DISCHARGE MEDICATIONS: Include (no changes): 1. Scopolamine patch q.72 hours p.r.n. 2. Tylenol 650 mg p.o. q.8 hours p.r.n. 3. Eliquis 2.5 mg p.o. b.i.d. (for 30 days after his hip surgery, so through to 06/01/19). 4. Docusate 100 mg p.o. b.i.d. p.r.n. 5. Trulicity 1.5 mg subcutaneously weekly. 6. Lisinopril/hydrochlorothiazide 20/25 combination 1 tab p.o. daily. 7. Crestor 5 mg p.o. daily. 8. Januvia 50 mg p.o. daily. FOLLOWUP: The patient will follow up with Dr. Huang in 1 to 2 weeks and he should call the office [facility] on Wednesday to schedule followup next week. Other instructions include, he may sh ower, but avoid bath for at least 1 week. Light activity is allowed, gradually increase with toleranc e. Please seek medical attention with any sharp increase in pain, fever of 101, or any wound drainag e. DISPOSITION: Home. CONDITION: Improved. DIET: Carbohydrate consistent, heart healthy, unchanged. TIME SPENT ON DISCHARGE: Thirty-five minutes. [id number]/[facility] #: [id number]
== END 2019-05-14 11:45 | disposition home or self-care (01) | DRG 223 ==
LOC: ED 06:16 → SSU 12:15
PROVIDERS: ADMIT Internal Medicine; ATTEND Internal Medicine
PROC: 0D9670Z Drainage of Stomach with Drainage Device, Via Natural or Artificial Opening (ICD-10-PCS; 2019-05-04)
PROC: 0DN88ZZ Release Small Intestine, Via Natural or Artificial Opening Endoscopic (ICD-10-PCS; 2019-05-08)
PROC: 0DBB0ZZ Excision of Ileum, Open Approach (ICD-10-PCS; principal; 2019-05-08 13:00)
DX: K56.51 Intestinal adhesions [bands], with partial obstruction (principal); K91.89 Other postprocedural complications and disorders of digestive system; E66.01 Morbid (severe) obesity due to excess calories; Z68.35 Body mass index [BMI] 35.0-35.9, adult; Q43.0 Meckel's diverticulum (displaced) (hypertrophic); K59.00 Constipation, unspecified; E11.9 Type 2 diabetes mellitus without complications; I10 Essential (primary) hypertension; E78.00 Pure hypercholesterolemia, unspecified; Z96.642 Presence of left artificial hip joint; E87.6 Hypokalemia; K56.7 Ileus, unspecified; Z79.01 Long term (current) use of anticoagulants; Z79.84 Long term (current) use of oral hypoglycemic drugs; Z79.1 Long term (current) use of non-steroidal anti-inflammatories (NSAID); Z79.899 Other long term (current) drug therapy; Z82.3 Family history of stroke; Z82.49 Family history of ischemic heart disease and other diseases of the circulatory system; Z83.79 Family history of other diseases of the digestive system
CPT/HCPCS: 36415; 74018; 74019; 74177; 80048; 80053; 83605; 83690; 83735; 84100; 84132; 84484; 85025; 88304; 93005; 99284; A9270-GY; C1776; G8987-GO-CI; G8988-GO-CI; G8989-GO-CI; J0330; J0694; J0780; J1100; J1170; J1650; J1885; J2250; J2405; J2704; J2710; J3010; J3480; Q9967